=== PATIENT | male | born 1940 | race Caucasian/White ===

== ENCOUNTER 2017-05-13 13:01 | Outpatient (CLI) | payer MEDICARE, OTHER ==
[2017-05-13 13:37] LABS: HEMATOCRIT 24.1 % (37.9-51.0); HEMOGLOBIN 8.1 g/dL (13.5-17.0); HGB HCT DIFFERENCE 0.2; MEAN CORPUSCULAR HEMOGLOBIN 31.6 pg (27.0-33.4); MEAN CORPUSCULAR HGB CONC 33.7 g/dL (32.0-36.0); MEAN CORPUSCULAR VOLUME 94 fl (80-97); RED BLOOD COUNT 2.58 10^6/uL (4.35-5.55); RED CELL DISTRIBUTION WIDTH 14.7 % (11.5-14.0); WHITE BLOOD COUNT 8.7 10^3/uL (4.0-10.5)
[2017-05-13] MEDS ORDERED: NORMAL SALINE 250 ML IV PRN (13:54)
[2017-05-13] MEDS ORDERED: FUROSEMIDE INJ/PF 40 MG/4 ML SDV IV PRN (14:15)
[2017-05-13] MEDS ORDERED: ACETAMINOPHEN 325 MG TABLET PO PRN (14:15)
[2017-05-13] MEDS ORDERED: DIPHENHYDRAMINE HCL 25 MG CAPSULE PO PRN (14:15)
[2017-05-13 20:35] VITALS: BP 139/49
[2017-05-13 21:58] LABS: HEMATOCRIT 29.9 % (37.9-51.0); MEAN CORPUSCULAR HEMOGLOBIN 31.7 pg (27.0-33.4); MEAN CORPUSCULAR HGB CONC 34.2 g/dL (32.0-36.0); MEAN CORPUSCULAR VOLUME 93 fl (80-97); RED BLOOD COUNT 3.23 10^6/uL (4.35-5.55); RED CELL DISTRIBUTION WIDTH 14.9 % (11.5-14.0); WHITE BLOOD COUNT 7.9 10^3/uL (4.0-10.5)
[2017-05-13 22:11] LABS: HEMOGLOBIN 10.3 g/dL (13.5-17.0)
== END 2017-05-13 21:40 | disposition home or self-care (01) ==
LOC: II 13:01 → 4N 13:05 → II 21:40
PROVIDERS: ATTEND Internal Medicine Nephrology
PROC: 30233N1 Transfusion of Nonautologous Red Blood Cells into Peripheral Vein, Percutaneous Approach (ICD-10-PCS; principal; 2017-05-13)
DX: N18.5 Chronic kidney disease, stage 5 (principal); D63.1 Anemia in chronic kidney disease; I25.10 Atherosclerotic heart disease of native coronary artery without angina pectoris; R06.00 Dyspnea, unspecified
CPT/HCPCS: 96374; 86900; 86901; 36415; 36430; 86850; 85027; 86920; P9016; A9270 ×2; J1940

== ENCOUNTER → 2017-06-22 | Outpatient (CLI) | payer MEDICARE, OTHER ==
[2017-06-22 13:32] LABS: ABSOLUTE EOSINOPHILS # (AUTO) 0.5 10^3/uL (0.0-0.6); ABSOLUTE LYMPHOCYTES (AUTO) 0.6 10^3/uL (0.5-4.7); ABSOLUTE MONOCYTES (AUTO) 0.7 10^3/uL (0.1-1.4); ABSOLUTE NEUT (AUTO) 5.5 10^3/uL (1.7-8.2); BASOPHILS % (AUTO) 0.5 % (0-2); EOSINOPHILS % (AUTO) 6.6 % (0-6); HEMATOCRIT 28.2 % (37.9-51.0); HEMOGLOBIN 9.3 g/dL (13.5-17.0); HGB HCT DIFFERENCE -0.3; LYMPHOCYTES % (AUTO) 8.5 % (13-45); MEAN CORPUSCULAR HEMOGLOBIN 31.5 pg (27.0-33.4); MEAN CORPUSCULAR VOLUME 95 fl (80-97); MONOCYTES % (AUTO) 9.2 % (3-13); RED BLOOD COUNT 2.96 10^6/uL (4.35-5.55); RED CELL DISTRIBUTION WIDTH 15.4 % (11.5-14.0); SEGMENTED NEUTROPHILS % (AUTO) 75.2 % (42-78); WHITE BLOOD COUNT 7.3 10^3/uL (4.0-10.5)
[2017-06-22 13:34] LABS: APPEARANCE,URINE CLEAR; BILIRUBIN,URINE NEGATIVE (NEGATIVE); GLUCOSE, URINE NEGATIVE (NEGATIVE); KETONES,URINE NEGATIVE (NEGATIVE); LEUKOCYTE ESTERASE,URINE NEGATIVE (NEGATIVE); NITRITE,URINE NEGATIVE (NEGATIVE); PROTEIN,URINE >=500 mg/dL (NEGATIVE); URINE SPECIFIC GRAVITY 1.013; UROBILINOGEN,URINE NEGATIVE mg/dL (<2.0)
[2017-06-22 13:42] LABS: ALBUMIN 3.1 g/dL (3.5-5.0); ANION GAP 12 (5-19); BLOOD UREA NITROGEN 88 mg/dL (7-20); CALCIUM 8.2 mg/dL (8.4-10.2); CARBON DIOXIDE 22 mmol/L (22-30); CHLORIDE 107 mmol/L (98-107); CREATININE RESULT 3.97 mg/dL (0.52-1.25); GLUCOSE 80 mg/dL (75-110); PHOSPHORUS 5.9 mg/dL (2.5-4.5); POTASSIUM 4.9 mmol/L (3.6-5.0); SODIUM 140.5 mmol/L (137-145)
[2017-06-22 14:17] LABS: URINE CREATININE 81.8 mg/dL (22-328)
[2017-06-22 14:39] LABS: URINE PROTEIN 718.6 mg/dL (<12)
[2017-06-23 06:38] LABS: HEPATITIS C VIRUS AB <0.1 s/co ratio (0.0-0.9)
== END ==
LOC: OD 12:32
PROVIDERS: ATTEND Internal Medicine Nephrology
DX: N18.5 Chronic kidney disease, stage 5 (principal); E83.39 Other disorders of phosphorus metabolism; R80.9 Proteinuria, unspecified
CPT/HCPCS: 36415; 80048; 81001; 82040; 82570; 84100; 84156; 85025; 86317; 86704; 86803; 86804

== ENCOUNTER → 2017-07-13 | Outpatient (CLI) | payer MEDICARE, OTHER ==
[2017-07-13 15:14] LABS: ABSOLUTE EOSINOPHILS # (AUTO) 0.6 10^3/uL (0.0-0.6); ABSOLUTE MONOCYTES (AUTO) 0.7 10^3/uL (0.1-1.4); ABSOLUTE NEUT (AUTO) 6.6 10^3/uL (1.7-8.2); BASOPHILS % (AUTO) 0.5 % (0-2); EOSINOPHILS % (AUTO) 6.9 % (0-6); HEMATOCRIT 23.4 % (37.9-51.0); HEMOGLOBIN 8.1 g/dL (13.5-17.0); HGB HCT DIFFERENCE 0.9; LYMPHOCYTES % (AUTO) 11.3 % (13-45); MEAN CORPUSCULAR HGB CONC 34.4 g/dL (32.0-36.0); MEAN CORPUSCULAR VOLUME 93 fl (80-97); MONOCYTES % (AUTO) 8.3 % (3-13); RED BLOOD COUNT 2.52 10^6/uL (4.35-5.55); RED CELL DISTRIBUTION WIDTH 14.4 % (11.5-14.0)
[2017-07-13 15:16] LABS: APPEARANCE,URINE CLEAR; BILIRUBIN,URINE NEGATIVE (NEGATIVE); GLUCOSE, URINE NEGATIVE (NEGATIVE); KETONES,URINE NEGATIVE (NEGATIVE); LEUKOCYTE ESTERASE,URINE NEGATIVE (NEGATIVE); NITRITE,URINE NEGATIVE (NEGATIVE); PROTEIN,URINE >=500 mg/dL (NEGATIVE); URINE SPECIFIC GRAVITY 1.008; UROBILINOGEN,URINE NEGATIVE mg/dL (<2.0)
[2017-07-13 15:35] LABS: ALBUMIN 3.1 g/dL (3.5-5.0); ANION GAP 10 (5-19); BLOOD UREA NITROGEN 86 mg/dL (7-20); CALCIUM 8.7 mg/dL (8.4-10.2); CARBON DIOXIDE 22 mmol/L (22-30); CHLORIDE 107 mmol/L (98-107); CREATININE RESULT 4.81 mg/dL (0.52-1.25); GLUCOSE 75 mg/dL (75-110); PHOSPHORUS 6.2 mg/dL (2.5-4.5); POTASSIUM 5.6 mmol/L (3.6-5.0); SODIUM 139.4 mmol/L (137-145)
[2017-07-13 16:17] LABS: URINE CREATININE 41.4 mg/dL (22-328)
[2017-07-13 16:29] LABS: URINE PROTEIN 325.5 mg/dL (<12)
== END ==
LOC: OD 13:28
PROVIDERS: ATTEND Internal Medicine Nephrology
DX: N18.5 Chronic kidney disease, stage 5 (principal); D63.1 Anemia in chronic kidney disease; E83.39 Other disorders of phosphorus metabolism
CPT/HCPCS: 36415; 80048; 81001; 82040; 82570; 84100; 84156; 85025

== ENCOUNTER 2017-07-27 13:14 | Emergency (ER) | payer MEDICARE, OTHER ==
[2017-07-27] MEDS ORDERED: ALBUTEROL SULFATE 0.083% NEB 2.5 MG/3 ML AMPUL NEB ONE (13:40)
[2017-07-27] MEDS ORDERED: PREDNISONE 20 MG TABLET PO ONE (13:40)
[2017-07-27] MEDS ORDERED: IPRATROPIUM/ALBUTEROL 0.5-2.5 MG/3 ML AMPUL NEB ONE (13:40)
--- NOTE | 2017-07-27 14:13 | RADIOLOGY REPORT (SQ) ---
EXAM DESCRIPTION: CHEST PA/LAT COMPLETED DATE/TIME: 07/27/2017 1:59 pm REASON FOR STUDY: sob COMPARISON: Two-view chest 04/24/2011 EXAM PARAMETERS: NUMBER OF VIEWS: two views TECHNIQUE: Digital Frontal and Lateral radiographic views of the chest acquired. RADIATION DOSE: NA LIMITATIONS: none FINDINGS: LUNGS AND PLEURA: A 2 cm nodule is projected over the lower left major fissure, best shown on lateral view. Consider follow-up chest CT. Trace right lateral costophrenic sulcus and posterior costophrenic sulcus pleural fluid. No fluffy alveolar infiltrates worrisome for edema or pneumonia. No pneumothorax. MEDIASTINUM AND HILAR STRUCTURES: No masses or contour abnormalities. HEART AND VASCULAR STRUCTURES: Post sternotomy, aortic valve replacement, CABG. Faintly radiopaque c oronary stents are present. BONES: Osteopenic HARDWARE: Left-sided permanent central line tip superior vena cava OTHER: No other significant finding. IMPRESSION: 2 cm nodule projected over the major fissure region on lateral view, may be in the left lung base on frontal view. Trace right pleural effusion Left jugular central venous dialysis catheter tip in the superior vena cava TECHNICAL DOCUMENTATION: JOB ID: [id number] [employer]- All Rights Reserved
[2017-07-27] MEDS ORDERED: ALBUTEROL SULFATE HFA (90 MCG/PUFF) 8 GM MDI (1 MDI/ER DISP) IH ONE (16:07)
--- NOTE | 2017-07-27 16:08 | ER Document Report ---
ED General - General Chief Complaint: Shortness Of Breath Stated Complaint: SHORTNESS OF BREATH Time Seen by Provider: 07/27/17 13:38 TRAVEL OUTSIDE OF THE [place] IN LAST 30 DAYS: No - HPI Patient complains to provider of: Shortness of breath Notes: Patient coming in for evaluation shortness of breath. Patient states that he was at dialysis was recently started on dialysis when he became wheezy and therefore was transported to the ER for further evaluation. Patient only received 15 minutes of his dialysis session. Patient otherwise had no complaints no fevers chills nausea vomiting diarrhea no productive sputum. Patient otherwise is resting comfortably upon my evaluation. - Related Data Allergies/Adverse Reactions: niacin [Niacin] Allergy (Mild, Verified 06/16/16 16:24) [place] Past Medical History - Social History Smoking Status: Current Every Day Smoker Chew tobacco use (# tins/day): No Frequency of alcohol use: None Drug Abuse: None Family History: Reviewed & Not Pertinent - Past Medical History Cardiac Medical History: Reports: Hx Coronary Artery Disease - PVD, Hx Heart Attack - SC X3, Hx Hypertension Pulmonary Medical History: Reports: Hx Asthma, Hx COPD Denies: Hx Bronchitis, Hx Pneumonia Neurological Medical History: Reports: Hx Cerebrovascular Accident. Denies: Hx Seizures Renal/ Medical History: Reports: Hx End Stage Renal Disease - dialysis x 1 wk Musculoskeltal Medical History: Denies Hx Arthritis - Immunizations Hx Diphtheria, Pertussis, Tetanus Vaccination: No - THINKS HE HAD PNEU SHOT 2012 Hx Pneumococcal Vaccination: 10/18/12 Review of Systems - Review of Systems Constitutional: No symptoms reported EENT: No symptoms reported Cardiovascular: No symptoms reported Respiratory: Short of breath Gastrointestinal: No symptoms reported Genitourinary: No symptoms reported Male Genitourinary: No symptoms reported Musculoskeletal: No symptoms reported Skin: No symptoms reported Hematologic/Lymphatic: No symptoms reported Neurological/Psychological: No symptoms reported -: Yes All other systems reviewed and negative Physical Exam - Vital signs Vitals: Temp Pulse Resp BP Pulse Ox 97.8 F 88 16 143/50 H 94 07/27/17 16:18 07/27/17 16:18 07/27/17 16:18 07/27/17 16:18 07/27/17 16:18 Interpretation: Normal - General General appearance: Appears well, Alert - HEENT Head: Normocephalic, Atraumatic Eyes: Normal Pupils: PERRL - Respiratory Respiratory status: No respiratory distress Chest status: Nontender Breath sounds: Wheezing Chest palpation: Normal - Cardiovascular Rhythm: Regular Heart sounds: Normal auscultation Murmur: No - Abdominal Inspection: Normal Distension: No distension Bowel sounds: Normal Tenderness: Nontender Organomegaly: No organomegaly - Back Back: Normal, Nontender - Extremities General upper extremity: Normal inspection, Nontender, Normal color, Normal ROM , Normal temperature General lower extremity: Normal inspection, Nontender, Normal color, Normal ROM , Normal temperature, Normal weight bearing. No: Angelina's sign - Neurological Neuro grossly intact: Yes Cognition: Normal Orientation: AAOx4 Alberto Coma Scale Eye Opening: Spontaneous Alberto Coma Scale Verbal: Oriented [place] Coma Scale Motor: Obeys Commands Alberto Coma Scale Total: 15 Speech: Normal Motor strength normal: LUE, RUE, LLE, RLE Sensory: Normal - Psychological Associated symptoms: Normal affect, Normal mood - Skin Skin Temperature: Warm Skin Moisture: Dry Skin Color: Normal Course - Re-evaluation Re-evalutation: 07/27/17 18:20 Patient refusing any lab work states he would just like a chest x-ray breathing treatments. This was performed. Chest x-ray did not show any critical findings. 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 Otherwise patient feeling better agrees with discharge home with put the patient on prednisone - Vital Signs Vital signs: Temp Pulse Resp BP Pulse Ox 97.8 F 88 16 143/50 H 94 07/27/17 16:18 07/27/17 16:18 07/27/17 16:18 07/27/17 16:18 07/27/17 16:18 Discharge - Discharge Clinical Impression: Wheezing Dyspnea Qualifiers: Dyspnea type: unspecified Qualified Code(s): R06.00 - Dyspnea, unspecified Condition: Good Disposition: HOME, SELF-CARE Instructions: Bronchitis With Bronchospasm (Wheezing) (FORM[facility]LY [facility], 1928–1983) Additional Instructions: Please use your inhalers at home 2 puffs every 4 hours. Return to the ER if symptoms worsen. Take medications as prescribed. Prescriptions: Prednisone [Deltasone] 40 mg PO DAILY 5 Days tablet
[2017-07-27 16:25] VITALS: BP 143/50
== END 2017-07-27 16:25 | disposition home or self-care (01) ==
LOC: ER 13:14
DX: R06.00 Dyspnea, unspecified (principal); R06.2 Wheezing; R06.02 Shortness of breath; F17.200 Nicotine dependence, unspecified, uncomplicated; Z99.2 Dependence on renal dialysis
CPT/HCPCS: 94640; 99284; 71020; A9270 ×3; J3490; J7512; J7620

== ENCOUNTER → 2018-04-07 | Outpatient (CLI) | payer MEDICARE, OTHER ==
[2018-04-07 18:42] LABS: ALANINE AMINOTRANSFERASE 20 U/L (21-72); ALBUMIN 3.9 g/dL (3.5-5.0); ALKALINE PHOSPHATASE 97 U/L (38-126); ASPARTATE AMINO TRANSFERASE 20 U/L (17-59); BILIRUBIN,DIRECT 0.5 mg/dL (0.0-0.4); BILIRUBIN,TOTAL 0.8 mg/dL (0.2-1.3); CHOLESTEROL 119.44 mg/dL (0-200); TOTAL PROTEIN 6.5 g/dL (6.3-8.2); TRIGLYCERIDES 81 mg/dL (<150)
[2018-04-07 18:54] LABS: DIRECT LDL 47 mg/dL (<100)
== END ==
LOC: OD 17:45
PROVIDERS: ATTEND Internal Medicine Cardiovascular Disease
DX: E78.00 Pure hypercholesterolemia, unspecified (principal); Z79.899 Other long term (current) drug therapy
CPT/HCPCS: 80061; 80076

== ENCOUNTER → 2018-09-23 | Outpatient (CLI) | payer MEDICARE, OTHER ==
[~2018-09-23] MED LIST: ALBUTEROL SULFATE 0.083% NEB 2.5 MG/3 ML AMPUL NEB ONE
--- NOTE | 2018-09-23 09:53 | RADIOLOGY REPORT (SQ) ---
EXAM DESCRIPTION: CHEST 2 VIEWS COMPLETED DATE/TIME: 09/23/2018 9:44 am REASON FOR STUDY: PAROXSMAL ATRIAL FIBRILLATION COMPARISON: 07/27/2017 EXAM PARAMETERS: NUMBER OF VIEWS: two views TECHNIQUE: Digital Frontal and Lateral radiographic views of the chest acquired. RADIATION DOSE: NA LIMITATIONS: none FINDINGS: LUNGS AND PLEURA: There is a small left-sided pleural effusion there is underlying atelect asis. Pulmonary nodule previously described is less apparent on the lateral projection but is appare nt on the PA film measured at 1.9 cm adjacent to the mediastinum. MEDIASTINUM AND HILAR STRUCTURES: No masses or contour abnormalities. HEART AND VASCULAR STRUCTURES: Heart normal size. No evidence for failure. BONES: No acute findings. HARDWARE: Unchanged. OTHER: No other significant finding. IMPRESSION: 1. Small left pleural effusion with left basilar atelectasis or pneumonia new from prior study. Again left lower lobe pulmonary nodule is suspected best demonstrated on the PA projection o n today's study. This is measured at 1.9 cm. TECHNICAL DOCUMENTATION: JOB ID: [id number] [employer]- All Rights Reserved Reading location - IP/workstation name: [email or web address]
--- NOTE | 2018-09-26 11:12 | Pulmonary Function Test ---
Pulmonary Function Test Date of Procedure:: 09/26/18 INDICATION:: Dyspnea Referring Provider: Wood Cabinetmaker: Sandra Hernandez GROUP DYNAMICS INSTRUCTOR - Report Spirometry: FVC 3.29 L 94% postbronchodilator 3.36 L 96% FEV1 1.66 L 61% postbronchodilator 1.67 L 62% FEV1/FVC % 50 postbronchodilator 50 predicted 78 FEF 25-75% 0.41 L 50% postbronchodilator 0.39 L 50% Diffusion capacity 10.2 64% DLCO/VA 2.90 83% Diffusion Capactity: Diffusion capacity 10.2 64% DLCO/VA 2.90 83% Impression: Severe obstructive ventilatory defect with insignificant response to bronchodilator therapy. This in and of itself does not preclude a clinical trial of bronchodilator therapy. Mild decrease in diffusion capacity.
== END ==
LOC: RT 08:24
PROVIDERS: ATTEND Internal Medicine Cardiovascular Disease
DX: I48.0 Paroxysmal atrial fibrillation (principal); Z79.899 Other long term (current) drug therapy
CPT/HCPCS: 71046; 94729; 94060; A9270

== ENCOUNTER → 2018-10-20 | Outpatient (CLI) | payer MEDICARE, OTHER | LOC: OD 11:17 | PROVIDERS: ATTEND Internal Medicine Critical Care Medicine | DX: J44.9 Chronic obstructive pulmonary disease, unspecified (principal); R91.8 Other nonspecific abnormal finding of lung field; R91.1 Solitary pulmonary nodule; J90 Pleural effusion, not elsewhere classified; J43.9 Emphysema, unspecified; Z87.448 Personal history of other diseases of urinary system; Z99.2 Dependence on renal dialysis; J44.1 Chronic obstructive pulmonary disease with (acute) exacerbation; F17.200 Nicotine dependence, unspecified, uncomplicated ==

== ENCOUNTER 2018-10-21 07:21 | Day surgery (SDC) | payer MEDICARE, OTHER ==
[2018-10-21 07:51] LABS: INTERNATIONAL RATION (INR) 1.05; PARTIAL THROMBOPLASTIN TIME 33.1 SEC (23.5-35.8); PROTHROMBIN TIME 14.2 SEC (11.4-15.4)
[2018-10-21 08:06] LABS: ANION GAP 13 (5-19); BLOOD UREA NITROGEN 57 mg/dL (7-20); CALCIUM 8.6 mg/dL (8.4-10.2); CARBON DIOXIDE 28 mmol/L (22-30); CHLORIDE 96 mmol/L (98-107); GLUCOSE 77 mg/dL (75-110); POTASSIUM 5.6 mmol/L (3.6-5.0); SODIUM 136.6 mmol/L (137-145)
[2018-10-21 08:11] LABS: HEMATOCRIT 26.7 % (37.9-51.0); HEMOGLOBIN 8.8 g/dL (13.5-17.0); MEAN CORPUSCULAR HEMOGLOBIN 30.6 pg (27.0-33.4); MEAN CORPUSCULAR HGB CONC 32.8 g/dL (32.0-36.0); MEAN CORPUSCULAR VOLUME 93 fl (80-97); RED BLOOD COUNT 2.86 10^6/uL (4.35-5.55); RED CELL DISTRIBUTION WIDTH 18.8 % (11.5-14.0); WHITE BLOOD COUNT 8.9 10^3/uL (4.0-10.5)
[2018-10-21 08:45] LABS: PLATELET COUNT 92 10^3/uL (150-450)
[2018-10-21] MEDS ORDERED: LEVALBUTEROL HCL NEB 1.25 MG/3 ML AMPUL NEB ONE (09:38)
[2018-10-21] MEDS ORDERED: LIDOCAINE 1% INJ-PF (10 MG/ML) 30 ML SDV ONE (10:39)
--- NOTE | 2018-10-21 11:09 | RADIOLOGY REPORT (SQ) ---
EXAM DESCRIPTION: CHEST SINGLE VIEW COMPLETED DATE/TIME: 10/21/2018 10:48 am REASON FOR STUDY: PREOP COMPARISON: None. EXAM PARAMETERS: NUMBER OF VIEWS: One view. TECHNIQUE: Single frontal radiographic view of the chest acquired. RADIATION DOSE: NA LIMITATIONS: None. FINDINGS: LUNGS AND PLEURA: Moderate left-sided pleural effusion, mildly increased from prior. Dens e basilar consolidation, likely combination of atelectasis and effusion. No pneumothorax. MEDIASTINUM AND HILAR STRUCTURES: No discrete masses. HEART AND VASCULAR STRUCTURES: Heart normal in size. Normal vasculature. BONES: No acute findings. HARDWARE: None in the chest. OTHER: No other significant finding. IMPRESSION: Mildly increased size of the moderate left pleural and associated basilar atelectasis. TECHNICAL DOCUMENTATION: JOB ID: [id number] [employer]- All Rights Reserved Reading location - IP/workstation name: [email or web address]
--- NOTE | 2018-10-21 11:58 | RADIOLOGY REPORT (SQ) ---
EXAM DESCRIPTION: CHEST SINGLE VIEW COMPLETED DATE/TIME: 10/21/2018 11:42 am REASON FOR STUDY: P/S THOROCENTESIS COMPARISON: None. EXAM PARAMETERS: NUMBER OF VIEWS: One view. TECHNIQUE: Single frontal radiographic view of the chest acquired. RADIATION DOSE: NA LIMITATIONS: None. FINDINGS: LUNGS AND PLEURA: Mildly decreased size of the left-sided pleural effusion post thoracente sis. No pneumothorax. Residual mild effusion and basilar atelectasis. Unremarkable right hemithora x. MEDIASTINUM AND HILAR STRUCTURES: Stable. HEART AND VASCULAR STRUCTURES: Stable. Atherosclerotic aorta. BONES: No acute abnormality. Median sternotomy changes. HARDWARE: None in the chest. OTHER: No other significant finding. IMPRESSION: Mildly decreased size of the left-sided pleural effusion status post thoracentesis. No pneumothorax. TECHNICAL DOCUMENTATION: JOB ID: [id number] [employer]- All Rights Reserved Reading location - IP/workstation name: [email or web address]
--- NOTE | 2018-10-21 12:04 | RADIOLOGY REPORT (SQ) ---
EXAM DESCRIPTION: U/S CHEST COMPLETED DATE/TIME: 10/21/2018 10:44 am REASON FOR STUDY: QUANTITATIVE FOR PLEURAL EFF @0900 J90 PLEURAL EFFUSION, NOT ELSEWHERE CLASSIFIED Z79.01 ALF (CURRENT) USE OF ANTICOAGULANTS COMPARISON: None. RADIATION DOSE: None LIMITATIONS: Limited ultrasound evaluation of the left chest performed to quantify pleural fluid. . PROCEDURE: Limited sonographic images of the left chest were obtained to quantify pleural fluid. Pl ease see the procedure report for detailed description of the procedure. FINDINGS: Limited left chest ultrasound demonstrates moderate volume simple appearing pleural effusi on. IMPRESSION: Limited left chest ultrasound demonstrates moderate volume simple pleural effusion. Ple ase see procedure report for detailed description of the procedure. TECHNICAL DOCUMENTATION: JOB ID: [id number] [employer]- All Rights Reserved Reading location - IP/workstation name: [email or web address]
[2018-10-21 12:34] LABS: FLUID TYPE PLEURAL
[2018-10-21 12:36] LABS: FLUID APPEARANCE HAZY; FLUID COLOR YELLOW; FLUID VISCOSITY LIQUID
[2018-10-21 12:56] VITALS: BP 153/58
[2018-10-21 15:02] LABS: TOTAL PROTEIN 5.8 g/dL (6.3-8.2)
--- NOTE | 2018-10-22 15:22 | OPERATIVE REPORT E ---
Operative Report NAME: DANE CASTLE : 1940 AGE: 78Y DATE OF SURGERY: 10/21/2018 ROOM: PROCEDURE: Ultrasound guided thoracentesis. SURGEON: RAQUEL CROSS M.D. INDICATION: Moderate pleural effusion, left side worsening. OTHER DIAGNOSES: 1. History of chronic kidney disease on hemodialysis. 2. Congestive heart failure. 3. Severe coronary artery disease. FINDINGS: Exudative serosanguineous pleural fluid drained from the left side to a total of 1100 mL. COMPLICATIONS: None. ESTIMATED BLOOD LOSS: Less than 1 mL. SPECIMEN REMOVED: Pleural fluid from the left chest. OPERATIVE NOTE: Consent was obtained from the patient. The patient verbalized understanding of the indication, risks and potential complications of the procedure such as pneumothorax, infection, and bleeding. Chest x-ray was performed today showing moderate pleural effusion left side. PT and PTT was normal. CBC showed some anemia of chronic disease and thrombocytopenia to 90,000 platelet count. Discussed with the patient the risk for bleeding at this platelet count level. The patient does not need a platelet transfusion at this time, platelet count is more than 50,000. Ultrasound was performed on the left chest showing atelectatic lung and moderate amount of pleural effusion, and there are no loculations or floating debris inside the pleural space. The thoracentesis needle entry site was marked and the operative site was sterilized with chlorhexidine solution. The area was covered with sterile drapes. Sterile gloves, mask, head gear, and sterile gowns were used during the procedure. Using aseptic technique lidocaine 1% was injected into the needle entry site to 10 mL. A small skin incision was performed and the thoracentesis needle was inserted in the left pleural space using the jose alejandro area. The syringe was aspirated as the thoracentesis needle is inserted, and as the pleural fluid was aspirated, the plastic catheter was pushed into the pleural space and the metal needle was withdrawn or removed. Then pleural fluid was then aspirated from the plastic catheter. Collected about 1100 mL of serosanguinous pleural fluid from the left lung. The patient tolerated the procedure very well. There was no apparent bleeding noted. Chest x-ray will be done to rule out pneumothorax and if there is no pneumothorax the patient will be discharged home. The pleural fluid was sent for cytology, AFB, bacteria, fungi cultures. DICTATING PHYSICIAN: RAQUEL CROSS MD,MELA,MPH [id number] PHY#: [id number] ID: [id number] JOB#: [id number] ACCT: [id number] cc:RAQUEL CROSS M.D. > [facility]
[2018-10-22 17:47] LABS: TOTAL PROTEIN BODY FLUID 3.6 g/dL (.)
== END 2018-10-21 12:10 | disposition home or self-care (01) ==
LOC: END 07:21
PROVIDERS: ATTEND Internal Medicine Critical Care Medicine
DX: J90 Pleural effusion, not elsewhere classified (principal); J91.8 Pleural effusion in other conditions classified elsewhere; J43.9 Emphysema, unspecified; Z79.01 Long term (current) use of anticoagulants; I25.10 Atherosclerotic heart disease of native coronary artery without angina pectoris; I50.9 Heart failure, unspecified; M10.9 Gout, unspecified; Z79.51 Long term (current) use of inhaled steroids; Z79.899 Other long term (current) drug therapy; Z79.02 Long term (current) use of antithrombotics/antiplatelets; Z79.82 Long term (current) use of aspirin; Z87.891 Personal history of nicotine dependence; Z99.2 Dependence on renal dialysis; Z87.448 Personal history of other diseases of urinary system
CPT/HCPCS: 32554; 88112; 36415; 87205; 87206; 87116; 87070; 87101; 83615 ×2; 84155; 85027; 85610; 85730; 89050; 87075; 80048; 82945; 84157; 87015; 71045; 76604; 94640; J3490 ×2

== ENCOUNTER 2018-11-29 07:15 | Day surgery (SDC) | payer MEDICARE, OTHER ==
[2018-11-29 08:05] LABS: HEMATOCRIT 26.6 % (37.9-51.0); HEMOGLOBIN 8.5 g/dL (13.5-17.0); MEAN CORPUSCULAR HEMOGLOBIN 29.4 pg (27.0-33.4); MEAN CORPUSCULAR HGB CONC 31.8 g/dL (32.0-36.0); MEAN CORPUSCULAR VOLUME 92 fl (80-97); PLATELET COUNT 118 10^3/uL (150-450); RED BLOOD COUNT 2.88 10^6/uL (4.35-5.55); RED CELL DISTRIBUTION WIDTH 19.6 % (11.5-14.0); WHITE BLOOD COUNT 8.7 10^3/uL (4.0-10.5)
[2018-11-29 08:12] LABS: INTERNATIONAL RATION (INR) 1.15; PROTHROMBIN TIME 15.3 SEC (11.4-15.4)
[2018-11-29 08:13] LABS: ANION GAP 8 (5-19); BLOOD UREA NITROGEN 24 mg/dL (7-20); CALCIUM 8.5 mg/dL (8.4-10.2); CARBON DIOXIDE 33 mmol/L (22-30); CHLORIDE 99 mmol/L (98-107); GLUCOSE 85 mg/dL (75-110); POTASSIUM 3.6 mmol/L (3.6-5.0); SODIUM 139.8 mmol/L (137-145)
[2018-11-29] MEDS ORDERED: DIPHENHYDRAMINE HCL 50 MG/ML VIAL ONE (10:50)
[2018-11-29] MEDS ORDERED: NALOXONE HCL INJ/PF 0.4 MG/1 ML SDV ONE (10:50)
[2018-11-29] MEDS ORDERED: ONDANSETRON HCL INJ/PF 4 MG/2 ML SDV ONE (10:50)
[2018-11-29] MEDS ORDERED: MIDAZOLAM 2 MG/2 ML INJ ONE (10:50)
[2018-11-29] MEDS ORDERED: FENTANYL CITRATE INJ/PF 100 MCG/2 ML AMPUL ONE (10:50)
[2018-11-29] MEDS ORDERED: GLUCAGON,HUMAN RECOMB 1 MG INJ ONE (10:51)
[2018-11-29] MEDS ORDERED: FLUMAZENIL INJ 0.5 MG/5 ML VIAL ONE (10:51)
[2018-11-29] MEDS ORDERED: EPINEPHRINE INJ 1 MG/10 ML DISP.SYRIN ONE (10:51)
[2018-11-29] MEDS ORDERED: LIDOCAINE 1% INJ-PF (10 MG/ML) 30 ML SDV ONE (11:20)
--- NOTE | 2018-11-29 12:49 | RADIOLOGY REPORT (SQ) ---
EXAM DESCRIPTION: CHEST SINGLE VIEW COMPLETED DATE/TIME: 11/29/2018 12:36 pm REASON FOR STUDY: POST THORO COMPARISON: Chest films 10/21/2018, 09/23/2018, 07/27/2017 Ultrasound left chest same date EXAM PARAMETERS: NUMBER OF VIEWS: One view. TECHNIQUE: Single frontal radiographic view of the chest acquired. RADIATION DOSE: NA LIMITATIONS: None. FINDINGS: LUNGS AND PLEURA: There is increase in left pleural effusion compared to previous studies. Persistent left lower lobe consolidation atelectasis versus pneumonia. Right lung well inflated and clear. No right pleural effusion or pneumothorax. MEDIASTINUM AND HILAR STRUCTURES: No masses. Contour normal. HEART AND VASCULAR STRUCTURES: Old sternotomy with aortic valve. No cardiomegaly. BONES: No acute findings. HARDWARE: None in the chest. OTHER: No other significant finding. IMPRESSION: Moderate left pleural effusion, increased compared to previous exams. TECHNICAL DOCUMENTATION: JOB ID: [id number] [employer]- All Rights Reserved Reading location - IP/workstation name: [email or web address]
--- NOTE | 2018-11-29 13:05 | RADIOLOGY REPORT (SQ) ---
EXAM DESCRIPTION: U/S CHEST COMPLETED DATE/TIME: 11/29/2018 11:48 am REASON FOR STUDY: 5TH FLOOR- TO RAHUL FOR THORACENTESIS COMPARISON: 10/21/2018 ultrasound chest Chest films 11/29/2018, 10/21/2018, 09/23/2018 TECHNIQUE: Ultrasound of the left chest was performed to rahul access for thoracentesis LIMITATIONS: None. FINDINGS: Ultrasound of the left chest demonstrates a moderate left subpulmonic pleural effusion. IMPRESSION: Ultrasound of the left chest demonstrates a moderate left subpulmonic pleural effusion TECHNICAL DOCUMENTATION: JOB ID: [id number] [employer]- All Rights Reserved Reading location - IP/workstation name: [email or web address]
--- NOTE | 2018-11-29 13:12 | OPERATIVE REPORT E ---
Operative Report NAME: DANE CASTLE : 1940 AGE: 78Y DATE OF SURGERY: ROOM: HISTORY: The patient is a 78-year-old male who came in with pleural effusion, recurrent, left side. The patient had thoracentesis on 10/21/2018, removing serous pleural effusion. The pleural effusion was unremarkable. He has been scheduled for ultrasound-guided thoracentesis as an outpatient. PROCEDURE: Ultrasound-guided thoracentesis, left side. INDICATION: Recurrent or worsening pleural effusion, left side. SURGEON: RAQUEL CROSS M.D. ESTIMATED BLOOD LOSS: Less than 1 mL. SPECIMEN COLLECTED: Pleural effusion, left side, serosanguineous fluid, about 1100 mL. PROCEDURE NOTE: Consent was obtained from the patient. The patient verbalized understanding of the indications, risks, and complications of the procedure. Ultrasound was performed on the left posterior chest quantifying the pleural effusion and localizing the needle entry site. Chlorhexidine swab was applied to the marked entry site to sterilize the operative site. Sterile drapes were used to cover the operative site. Using sterile gowns, sterile gloves, mask, and aseptic technique, 1% lidocaine solution was injected into the marked needle entry site to the total dose of about 15 mL lidocaine. A small skin incision was applied on the operative site. The thoracentesis needle from the Ibwq-F-Sdkvueoh kit was then inserted into the small skin incision and the needle was inserted into the pleural space just above the rib. Once the pleural fluid was withdrawn, the pleural catheter was then pushed into the pleural space, and then the metal needle was withdrawn. The pleural fluid was then subsequently drained into the container bag to a total amount of 1100 mL serosanguineous fluid. The patient tolerated the procedure well. Blood loss was negligible. Complained about upper chest pain on deep inspiration. Stat chest x-ray showed no pneumothorax. Pleural fluid will be sent for pleural fluid analysis. We will check the hemoglobin level. If the hemoglobin is normal, we will send the patient home and follow up as an outpatient. DICTATING PHYSICIAN: RAQUEL CROSS MD,MELA,MPH [id number] PHY#: [id number] ID: [id number] JOB#: [id number] ACCT: [id number] cc:RAQUEL CROSS M.D. > [facility]
[2018-11-29 13:13] LABS: ABSOLUTE EOSINOPHILS # (AUTO) 0.3 10^3/uL (0.0-0.6); ABSOLUTE MONOCYTES (AUTO) 0.7 10^3/uL (0.1-1.4); ABSOLUTE NEUT (AUTO) 6.2 10^3/uL (1.7-8.2); BASOPHILS % (AUTO) 0.4 % (0-2); EOSINOPHILS % (AUTO) 3.1 % (0-6); HEMATOCRIT 27.8 % (37.9-51.0); HEMOGLOBIN 8.9 g/dL (13.5-17.0); LYMPHOCYTES % (AUTO) 12.6 % (13-45); MEAN CORPUSCULAR HEMOGLOBIN 29.1 pg (27.0-33.4); MEAN CORPUSCULAR HGB CONC 31.9 g/dL (32.0-36.0); MEAN CORPUSCULAR VOLUME 91 fl (80-97); MONOCYTES % (AUTO) 8.1 % (3-13); PLATELET COUNT 103 10^3/uL (150-450); RED BLOOD COUNT 3.05 10^6/uL (4.35-5.55); RED CELL DISTRIBUTION WIDTH 19.7 % (11.5-14.0); SEGMENTED NEUTROPHILS % (AUTO) 75.8 % (42-78); TOTAL CELLS COUNTED % (AUTO) 100 %; WHITE BLOOD COUNT 8.2 10^3/uL (4.0-10.5)
[2018-11-29 13:55] VITALS: BP 152/45
[2018-11-29 14:05] LABS: FLUID APPEARANCE TURBID; FLUID COLOR RED; FLUID TYPE PLEURAL; FLUID VISCOSITY LIQUID
[2018-11-30 13:34] LABS: TOTAL PROTEIN BODY FLUID 3.5 g/dL (.)
== END 2018-11-29 13:30 | disposition home or self-care (01) ==
LOC: END 07:15
PROVIDERS: ATTEND Internal Medicine Critical Care Medicine
DX: J90 Pleural effusion, not elsewhere classified (principal); J43.9 Emphysema, unspecified; M10.9 Gout, unspecified; K74.60 Unspecified cirrhosis of liver; F17.210 Nicotine dependence, cigarettes, uncomplicated; Z79.51 Long term (current) use of inhaled steroids; Z79.82 Long term (current) use of aspirin; Z79.899 Other long term (current) drug therapy; Z79.02 Long term (current) use of antithrombotics/antiplatelets; Z86.73 Personal history of transient ischemic attack (TIA), and cerebral infarction without residual deficits
CPT/HCPCS: 32554; 36415; 87205; 87206; 87116; 87070; 87101; 83615 ×2; 85025; 85027; 85610; 85730; 89050; 87075; 80048; 82945; 84157; 87015; 88162; 88305 ×2; 71045; 76604; J3490; J0171; J1200; J1610; J2250; J2310; J2405; J3010

== ENCOUNTER → 2018-11-30 | Outpatient (CLI) | payer MEDICARE, OTHER ==
--- NOTE | 2018-11-30 15:53 | RADIOLOGY REPORT (SQ) ---
EXAM DESCRIPTION: CT CHEST WITHOUT COMPLETED DATE/TIME: 11/30/2018 3:29 pm REASON FOR STUDY: R91.1 SOLITARY PULMONARY NODULE R91.1 SOLITARY PULMONARY NODULE Z87.448 PERSONAL HISTORY OF OTHER DISEASES OF URINARY SYSTEM J90 PLEURAL EFFUSION, NOT ELSEWHERE CLASSIFIED COMPARISON: None. TECHNIQUE: CT scan performed of the chest without intravenous contrast. Images reviewed with lung, soft tissue and bone windows. Reconstructed coronal and sagittal MPR images reviewed. All images st ored on PACS. All CT scanners at this facility use dose modulation, iterative reconstruction, and/or weight based d osing when appropriate to reduce radiation dose to as low as reasonably achievable (ALARA). [facility]: Dose Right [facility]: CareDose [facility]: Dose Right [facility]: Teradose 4D [facility]: [employer] RADIATION DOSE: CT Rad equipment meets quality standard of care and radiation dose reduction techniq ues were employed. CTDIvol: 5.6 mGy. DLP: 233 mGy-cm. mGy. LIMITATIONS: No technical limitations. FINDINGS: LUNGS AND PLEURA: Pleural/parenchymal scarring in the apices. Prominent left pleural effu abdullahi that appears somewhat loculated in the left base. There are compressive atelectatic changes in the lingula and in the left lower lobe. HILAR AND MEDIASTINAL STRUCTURES: No identified masses or abnormal nodes. No obvious aneurysm. HEART AND VASCULAR STRUCTURES: No aneurysm. No pericardial effusion. UPPER ABDOMEN: Extensive atherosclerosis. THYROID AND OTHER SOFT TISSUES: No masses. No adenopathy. BONES: No significant finding. HARDWARE: Aortic valve. Sternotomy wires. OTHER: No other significant findings. IMPRESSION: There is a significant left pleural effusion as described. TECHNICAL DOCUMENTATION: JOB ID: [id number] Quality ID # [id number]: Final reports with documentation of one or more dose reduction techniques (e.g., Au tomated exposure control, adjustment of the mA and/or kV according to patient size, use of iterative reconstruction technique) 2010 [employer]- All Rights Reserved Reading location - IP/workstation name: [email or web address]
== END ==
LOC: RAD 15:10
PROVIDERS: ATTEND Internal Medicine Critical Care Medicine
DX: R91.1 Solitary pulmonary nodule (principal); Z87.448 Personal history of other diseases of urinary system; J90 Pleural effusion, not elsewhere classified; K74.60 Unspecified cirrhosis of liver; J44.9 Chronic obstructive pulmonary disease, unspecified; J43.9 Emphysema, unspecified; R91.8 Other nonspecific abnormal finding of lung field; G47.34 Idiopathic sleep related nonobstructive alveolar hypoventilation; F51.04 Psychophysiologic insomnia; Z99.2 Dependence on renal dialysis; F17.200 Nicotine dependence, unspecified, uncomplicated
CPT/HCPCS: 71250

== ENCOUNTER 2019-02-06 13:20 | Inpatient (IN) | payer MEDICARE, OTHER ==
--- NOTE | 2019-02-06 13:46 | ER Document Report ---
ED General - General Stated Complaint: BREATHING PROBLEMS Time Seen by Provider: 02/06/19 13:40 Primary Care Provider: RAQUEL CROSS MD [ACTIVE STAFF] - Follow up as needed TRAVEL OUTSIDE OF THE [place] IN LAST 30 DAYS: No - HPI Notes: Patient is a 78-year-old male that presents to the emergency department for chief complaint of shortness of breath. Patient presented by EMS from [facility] for shortness of breath. He was reportedly on dialysis for about 15 minutes when he became increasingly tachypneic. Patient reports feeling increased shortness of breath over the last 5 days. He gets dialysis Wednesday and has not missed a treatment other than only getting 15 minutes today. Patient reports history of COPD and has been using his home albuterol nebulizer 3 times daily. He denies being on any steroids currently. He denies any associated fevers or chills. He does wear 2 L nasal cannula oxygen at night which he has been doing it. Patient received 125 mg of Solu-Medrol, 1 albuterol, 1 DuoNeb, 1 sublingual nitroglycerin, 1.25 mg of Vasotec and 1-1/2 inches of Nitropaste to his chest by EMS prior to arrival and reports feeling much better. EMS stated he was dusky in color and tripoding with an oxygen of 86% on 4 L nasal cannula when they arrived at [facility]. Patient denied any associated chest pain. Past Medical History: CAD, hypertension, CKD, COPD Past Surgical History: Right upper extremity AV fistula Social History: Quit smoking cigarettes 47 days ago. Denies alcohol or drug use Family History: Reviewed and noncontributory for presenting illness Allergies: Reviewed, see documented allergy list. REVIEW OF SYSTEMS: CONSTITUTIONAL : No fever No chills No diaphoresis No recent illness EENT: No vision changes No congestion No sore throat CARDIOVASCULAR: No chest pain No palpitations RESPIRATORY: shortness of breath cough difficulty breathing GASTROINTESTINAL: No abdominal pain No nausea No vomiting No diarrhea GENITOURINARY: No dysuria No hematuria No difficulty urinating MUSCULOSKELETAL: No back pain No leg pain No arm pain SKIN: No rashes No lesions LYMPHATIC: No swollen, enlarged glands. NEUROLOGICAL: No lightheadedness No headache No weakness No paresthesias PSYCHIATRIC: No anxiety No depression PHYSICAL EXAMINATION: Vital signs reviewed, nursing noted reviewed. GENERAL: Well-appearing, well-nourished and in no acute distress. HEAD: Atraumatic, normocephalic. EYES: Eyes appear normal, extraocular movements intact, sclera anicteric, conjunctiva are normal. ENT: nares patent, oropharynx clear without exudates. Moist mucous membranes. NECK: Normal range of motion, supple without lymphadenopathy LUNGS: Breath sounds diminished bilaterally with expiratory wheezing and mild a ccessory muscle use. Tachypneic. No retractions. HEART: Regular rate and rhythm without murmurs ABDOMEN: Protuberant, soft, nontender, normoactive bowel sounds. No rebound, guarding, or rigidity. No masses appreciated. EXTREMITIES: Right proximal extremity AV fistula with good bruit and thrill, no bleeding. Nontender, good range of motion, +2 bilateral pitting edema NEUROLOGICAL: No focal neurological deficits. Moves all extremities spontaneously Motor and sensory grossly intact on exam. PSYCH: Normal mood, normal affect. SKIN: Warm, Dry, normal turgor, no rashes or lesions noted on exposed skin - Related Data Allergies/Adverse Reactions: niacin [Niacin] Allergy (Mild, Verified 02/06/19 14:40) Flushing Past Medical History - Social History Smoking Status: Unknown if Ever Smoked Family History: Reviewed & Not Pertinent - Past Medical History Cardiac Medical History: Reports: Hx Coronary Artery Disease - PVD, Hx Heart Attack - [place] X3, Hx Hypertension Pulmonary Medical History: Reports: Hx Asthma, Hx COPD Denies: Hx Bronchitis, Hx Pneumonia Neurological Medical History: Reports: Hx Cerebrovascular Accident. Denies: Hx Seizures Renal/ Medical History: Reports: Hx End Stage Renal Disease - dialysis x 1 wk Musculoskeletal Medical History: Denies Hx Arthritis - Immunizations Hx Diphtheria, Pertussis, Tetanus Vaccination: No - THINKS HE HAD PNEU SHOT 2012 Hx Pneumococcal Vaccination: 10/18/12 Physical Exam - Vital signs Vitals: Resp Pulse Ox 19 100 02/06/19 13:30 02/06/19 13:30 Course - Re-evaluation Re-evalutation: 02/06/19 13:45 Vitals reviewed. Nursing notes reviewed. Patient is on BiPAP when he presents to the ER. He received Solu-Medrol, aerosols, nitro, Vasotec and was placed on CPAP by EMS prior to arrival and is reportedly looking significantly better. He reports significant symptomatic improvement. Patient's EKG shows a sinus rhythm with no STEMI. He was placed on laboratory monitor. 02/06/19 15:58 I discussed patient care with Dr. Rea who has arranged for him to receive dialysis, this was started in the emergency room. Patient's lab work shows bas mari renal insufficiency with a slight elevation in his potassium. He also has a high elevation in his BNP. Chest x-ray shows reaccumulation of his left pleural effusion which he has had drained 3 times in the past, he also has a small right pleural effusion. This is likely the cause of his respiratory difficulties. Patient will be admitted to the hospital for further respiratory management. He is in agreement with this plan of care. Case discussed with admitting physician. Laboratory 02/06/19 02/06/19 02/06/19 13:49 13:49 13:49 WBC 11.1 H RBC 2.61 L Hgb 7.4 L Hct 23.3 L MCV 89 MCH 28.3 MCHC 31.7 L RDW 19.2 H Plt Count 242 Seg Neutrophils % 86.2 H Lymphocytes % 5.2 L Monocytes % 5.6 Eosinophils % 2.4 Basophils % 0.6 Absolute Neutrophils 9.6 H Absolute Lymphocytes 0.6 Absolute Monocytes 0.6 Absolute Eosinophils 0.3 Absolute Basophils 0.1 Carbonic Acid HCO3/H2CO3 Ratio ABG pH ABG pCO2 ABG pO2 ABG HCO3 ABG Total CO2 ABG O2 Saturation ABG Base Excess FiO2 Sodium 134.1 L Potassium 5.3 H Chloride 98 Carbon Dioxide 29 Anion Gap 7 BUN 42 H Creatinine 5.39 H Est GFR ( Amer) 13 L Est GFR (Non-Af Amer) 10 L Glucose 118 H Calcium 9.4 Troponin I 0.021 NT-Pro-B Natriuret Pep 50695 H Blood Type Antibody Screen 02/06/19 02/06/19 14:50 15:00 WBC RBC Hgb Hct MCV MCH MCHC RDW Plt Count Seg Neutrophils % Lymphocytes % Monocytes % Eosinophils % Basophils % Absolute Neutrophils Absolute Lymphocytes Absolute Monocytes Absolute Eosinophils Absolute Basophils Carbonic Acid 1.30 HCO3/H2CO3 Ratio 22:1 ABG pH 7.45 ABG pCO2 43.2 ABG pO2 84.9 ABG HCO3 29.3 H ABG Total CO2 30.6 H ABG O2 Saturation 96.7 ABG Base Excess 4.8 FiO2 30% Sodium Potassium Chloride Carbon Dioxide Anion Gap BUN Creatinine Est GFR ( Amer) Est GFR (Non-Af Amer) Glucose Calcium Troponin I NT-Pro-B Natriuret Pep Blood Type A POSITIVE Antibody Screen NEGATIVE Chest X-Ray 02/06/19 13:41 IMPRESSION: Redemonstrated left-sided pleural effusion with associated atelectasis or consolidation. There is a new small right-sided pleural effusion . Unchanged cardiomegaly. - Vital Signs Vital signs: Temp Pulse Resp BP Pulse Ox 12 135/55 H 99 02/06/19 15:50 02/06/19 15:50 02/06/19 15:50 - Laboratory Result Diagrams: 02/06/19 13:49 02/06/19 13:49 Laboratory results interpreted by me: 02/06/19 02/06/19 02/06/19 13:49 13:49 13:49 WBC 11.1 H RBC 2.61 L Hgb 7.4 L Hct 23.3 L MCHC 31.7 L RDW 19.2 H Seg Neutrophils % 86.2 H Lymphocytes % 5.2 L Absolute Neutrophils 9.6 H ABG HCO3 ABG Total CO2 Sodium 134.1 L Potassium 5.3 H BUN 42 H Creatinine 5.39 H Est GFR ( Amer) 13 L Est GFR (Non-Af Amer) 10 L Glucose 118 H NT-Pro-B Natriuret Pep 05349 H 02/06/19 15:00 WBC RBC Hgb Hct MCHC RDW Seg Neutrophils % Lymphocytes % Absolute Neutrophils ABG HCO3 29.3 H ABG Total CO2 30.6 H Sodium Potassium BUN Creatinine Est GFR ( Amer) Est GFR (Non-Af Amer) Glucose NT-Pro-B Natriuret Pep - EKG Interpretation by Me Additional EKG results interpreted by me: 02/06/19 13:45 Interpreted by myself 1337: Normal sinus rhythm, rate 70, normal axis, no ectopy, no STEMI, borderline prolonged QT Critical Care Note - Critical Care Note Total time excluding time spent on procedures (mins): 35 Comments: Critical care time 35 exclusive from separate billable procedures for a patient requiring complex medical decision making, and high potential for clinical deterioration. Time spent obtaining history from patient or surrogate, discussions with consultants, development of treatment plan with patient or surrogate, evaluation of patient's response to treatment, examination of patient, ordering and performing treatments and interventions, ordering and review of laboratory studies, re-evaluation of patient's condition, ordering and review of radiographic studies and review of old charts Discharge - Discharge Clinical Impression: Bilateral pleural effusion, Hyperkalemia Respiratory failure Qualifiers: Chronicity: acute Respiratory failure complication: hypoxia Qualified Code(s): J96.01 - Acute respiratory failure with hypoxia Anemia Qualifiers: Anemia type: other cause Other causes of anemia: other cause, not classified Qualified Code(s): D64.89 - Other specified anemias Condition: Stable Disposition: ADMITTED INPATIENT Admitting Provider: Kain (Hospitalist) Unit Admitted: IMCU Referrals: RAQUEL CROSS MD [ACTIVE STAFF] - Follow up as needed
[2019-02-06 14:06] LABS: ABSOLUTE BASOPHILS # (AUTO) 0.1 10^3/uL (0.0-0.2); ABSOLUTE EOSINOPHILS # (AUTO) 0.3 10^3/uL (0.0-0.6); ABSOLUTE LYMPHOCYTES (AUTO) 0.6 10^3/uL (0.5-4.7); ABSOLUTE MONOCYTES (AUTO) 0.6 10^3/uL (0.1-1.4); ABSOLUTE NEUT (AUTO) 9.6 10^3/uL (1.7-8.2); BASOPHILS % (AUTO) 0.6 % (0-2); EOSINOPHILS % (AUTO) 2.4 % (0-6); HEMATOCRIT 23.3 % (37.9-51.0); LYMPHOCYTES % (AUTO) 5.2 % (13-45); MEAN CORPUSCULAR HEMOGLOBIN 28.3 pg (27.0-33.4); MEAN CORPUSCULAR HGB CONC 31.7 g/dL (32.0-36.0); MEAN CORPUSCULAR VOLUME 89 fl (80-97); MONOCYTES % (AUTO) 5.6 % (3-13); PLATELET COUNT 242 10^3/uL (150-450); RED BLOOD COUNT 2.61 10^6/uL (4.35-5.55); RED CELL DISTRIBUTION WIDTH 19.2 % (11.5-14.0); SEGMENTED NEUTROPHILS % (AUTO) 86.2 % (42-78); TOTAL CELLS COUNTED % (AUTO) 100 %; WHITE BLOOD COUNT 11.1 10^3/uL (4.0-10.5)
[2019-02-06 14:11] LABS: HEMOGLOBIN 7.4 g/dL (13.5-17.0)
[2019-02-06 14:22] LABS: ANION GAP 7 (5-19); BLOOD UREA NITROGEN 42 mg/dL (7-20); CALCIUM 9.4 mg/dL (8.4-10.2); CARBON DIOXIDE 29 mmol/L (22-30); CHLORIDE 98 mmol/L (98-107); GLUCOSE 118 mg/dL (75-110); POTASSIUM 5.3 mmol/L (3.6-5.0); SODIUM 134.1 mmol/L (137-145)
--- NOTE | 2019-02-06 14:27 | RADIOLOGY REPORT (SQ) ---
EXAM DESCRIPTION: CHEST SINGLE VIEW COMPLETED DATE/TIME: 02/06/2019 2:17 pm REASON FOR STUDY: shortness of breath COMPARISON: 11/29/2018 EXAM PARAMETERS: NUMBER OF VIEWS: One view. TECHNIQUE: Single frontal radiographic view of the chest acquired. RADIATION DOSE: NA LIMITATIONS: None. FINDINGS: LUNGS AND PLEURA: Redemonstrated left-sided pleural effusion with a new small right-sided pleural effusion. MEDIASTINUM AND HILAR STRUCTURES: No masses. Contour normal. HEART AND VASCULAR STRUCTURES: Cardiomegaly status post median sternotomy with aortic valve stent end ograft. BONES: No acute findings. HARDWARE: None in the chest. OTHER: No other significant finding. IMPRESSION: Redemonstrated left-sided pleural effusion with associated atelectasis or consolidation. There is a new small right-sided pleural effusion. Unchanged cardiomegaly. TECHNICAL DOCUMENTATION: JOB ID: [id number] [employer]- All Rights Reserved Reading location - IP/workstation name: [email or web address]
[2019-02-06 14:34] LABS: TROPONIN I 0.021 ng/mL
[2019-02-06 15:12] LABS: ARTERIAL BLOOD BASE EXCESS 4.8 mmol/L; ARTERIAL BLOOD HCO3 29.3 mmol/L (20-24); ARTERIAL BLOOD O2 SATURATION 96.7 % (94-98); ARTERIAL BLOOD PCO2 43.2 mmHg (35-45); ARTERIAL BLOOD PH 7.45 (7.35-7.45); ARTERIAL BLOOD PO2 84.9 mmHg (80-100); ARTERIAL BLOOD TOTAL CO2 30.6 mmol/L (23-27)
[2019-02-06 15:14] LABS: ARTERIAL BLOOD FIO2 30%
--- NOTE | 2019-02-06 15:21 | EKG REPORT ---
SEVERITY:- BORDERLINE ECG - SINUS RHYTHM PROBABLE LEFT ATRIAL ABNORMALITY BORDERLINE PROLONGED QT INTERVAL : Confirmed by: Felipe Chow MD 06-Feb-2019 15:20:03
[2019-02-06] MEDS ORDERED: LEVALBUTEROL HCL NEB 0.63 MG/3 ML AMPUL NEB PRN (15:40)
[2019-02-06] MEDS ORDERED: PIPERACILLIN/TAZOBACTAM 3.375 GM VIAL IV SCH (16:00)
[2019-02-06] MEDS ORDERED: PANTOPRAZOLE SODIUM 20 MG TABLET.DR PO SCH (16:00)
[2019-02-06] MEDS ORDERED: VANCOMYCIN HCL INJ 1000 MG VIAL IV SCH (16:00)
--- NOTE | 2019-02-06 16:24 | PDOC H&P ---
History of Present Illness Admission Date/PCP: 02/06/19 15:10 Patient complains of: Shortness of breath and hypoxia History of Present Illness: DANE CASTLE is a 78 year old male history of ESRD on hemodialysis Wednesday atrial fibrillation not on anticoagulation, coronary artery disease with triple bypass, COPD, abdominal aortic aneurysm repair, artificial facial wall replacement, hypertension, anemia, peripheral arterial disease, history of TB treated with the 9 months of anti-TB medications probably he is exposed to TB came to the emergency room with complaints of shortness of breath for the last 6 days. As per the he is waking up for the last 6 days with the severe shortness of breath and gasping for air. He went to the dialysis today after 10-minute on the dialysis machine he turned blue pulse ox dropped to 80s blood pressure went up to 201/67 EMS was called and he was brought to the emergency room for further evaluation. In the emergency room he was placed on BiPAP and chest x-ray shows bilateral pleural effusions especially the left pleural effusion which was large. As per the patient was in [place] 2 weeks ago for right pleural effusion with a chest tube placement and work-up was negative for carcinoma. pt is getting dialysis in the ER now. Patient is a full code as per the family member. Past Medical History Cardiac Medical History: Reports: Coronary Artery Disease - PVD, Myocardial Infarction - [place] X3, Hypertension Pulmonary Medical History: Reports: Asthma, Chronic Obstructive Pulmonary Disease (COPD) Denies: Bronchitis, Pneumonia Neurological Medical History: Denies: Seizures Renal/ Medical History: Reports: End Stage Renal Disease - dialysis x 1 wk Musculoskeltal Medical History: Denies: Arthritis Hematology: Reports: Anemia Past Surgical History Past Surgical History: Reports: Other - Abdominal aortic aneurysm repair, CABG with triple bypass. Social History Information Source: Patient Lives with: Family Smoking Status: Former Smoker Frequency of Alcohol Use: None Hx Recreational Drug Use: No Hx Prescription Drug Abuse: No - Advance Directive Resuscitation Status: Full Code Family History Family History: Reviewed & Not Pertinent Parental Family History Reviewed: Yes - History of cancers, hypertension and heart disease. Children Family History Reviewed: Yes Sibling(s) Family History Reviewed.: Yes Medication/Allergy Allergies/Adverse Reactions: niacin [Niacin] Allergy (Mild, Verified 02/06/19 14:40) Flushing Review of Systems ROS unobtainable: Other - 12-day history obtained from his . Constitutional: PRESENT: fatigue, weakness. ABSENT: fever(s), headache(s), night sweats Eyes: ABSENT: visual disturbances Ears: ABSENT: hearing changes Nose, Mouth, and Throat: ABSENT: sore throat Cardiovascular: ABSENT: chest pain, dyspnea on exertion, edema, orthropnea, palpitations Respiratory: PRESENT: dyspnea Gastrointestinal: ABSENT: diarrhea, dysphagia, heartburn, hematemesis, nausea, vomiting Integumentary: ABSENT: rash, wounds Neurological: ABSENT: abnormal gait, abnormal speech, confusion, dizziness, focal weakness, syncope Psychiatric: ABSENT: anxiety, depression, homidical ideation, suicidal ideation Physical Exam Vital Signs: Temp Pulse Resp BP Pulse Ox 16 144/55 H 100 02/06/19 15:00 02/06/19 14:01 02/06/19 15:00 Intake & Output 02/05/19 02/06/19 02/07/19 06:59 06:59 06:59 Weight 70.307 kg General appearance: PRESENT: other - In mild to moderate distress on BiPAP. Teeth exam: PRESENT: poor dentation Neck exam: ABSENT: carotid bruit, JVD, lymphadenopathy, thyromegaly Respiratory exam: PRESENT: crackles, decreased breath sounds Cardiovascular exam: PRESENT: irregular rhythm GI/Abdominal exam: PRESENT: normal bowel sounds, soft. ABSENT: distended, guarding, mass, organolmegaly, rebound, tenderness Rectal exam: PRESENT: deferred Extremities exam: PRESENT: full ROM. ABSENT: calf tenderness, clubbing, pedal edema Neurological exam: PRESENT: alert, awake, oriented to person, oriented to place, oriented to time, oriented to situation, CN II-XII grossly intact. ABSENT: motor sensory deficit Psychiatric exam: PRESENT: appropriate affect, normal mood. ABSENT: homicidal ideation, suicidal ideation Results Laboratory Results: 02/06/19 13:49 02/06/19 13:49 02/06/19 02/06/19 02/06/19 13:49 13:49 14:50 WBC 11.1 H RBC 2.61 L Hgb 7.4 L Hct 23.3 L MCV 89 MCH 28.3 MCHC 31.7 L RDW 19.2 H Plt Count 242 Seg Neutrophils % 86.2 H Lymphocytes % 5.2 L Monocytes % 5.6 Eosinophils % 2.4 Basophils % 0.6 Absolute Neutrophils 9.6 H Absolute Lymphocytes 0.6 Absolute Monocytes 0.6 Absolute Eosinophils 0.3 Absolute Basophils 0.1 Carbonic Acid HCO3/H2CO3 Ratio ABG pH ABG pCO2 ABG pO2 ABG HCO3 ABG O2 Saturation ABG Base Excess FiO2 Sodium 134.1 L Potassium 5.3 H Chloride 98 Carbon Dioxide 29 Anion Gap 7 BUN 42 H Creatinine 5.39 H Est GFR ( Amer) 13 L Est GFR (Non-Af Amer) 10 L Glucose 118 H Calcium 9.4 Blood Type A POSITIVE Antibody Screen NEGATIVE 02/06/19 15:00 WBC RBC Hgb Hct MCV MCH MCHC RDW Plt Count Seg Neutrophils % Lymphocytes % Monocytes % Eosinophils % Basophils % Absolute Neutrophils Absolute Lymphocytes Absolute Monocytes Absolute Eosinophils Absolute Basophils Carbonic Acid 1.30 HCO3/H2CO3 Ratio 22:1 ABG pH 7.45 ABG pCO2 43.2 ABG pO2 84.9 ABG HCO3 29.3 H ABG O2 Saturation 96.7 ABG Base Excess 4.8 FiO2 30% Sodium Potassium Chloride Carbon Dioxide Anion Gap BUN Creatinine Est GFR ( Amer) Est GFR (Non-Af Amer) Glucose Calcium Blood Type Antibody Screen 02/06/19 13:49 Troponin I 0.021 NT-Pro-B Natriuret Pep 93353 H Impressions: Chest X-Ray 02/06/19 13:41 IMPRESSION: Redemonstrated left-sided pleural effusion with associated atelectasis or consolidation. There is a new small right-sided pleural effusion. Unchanged cardiomegaly. Assessment and Plan - Diagnosis (1) Acute and chronic respiratory failure Is this a current diagnosis for this admission?: Yes Plan: 02/06/20195825-1-gn[age]-old male with multiple medical problems admitted with the severe hypoxia pulse ox is noted to be in the 80s in the dialysis unit he was transferred by EMS to the emergency room here he was placed on BiPAP in the emergency room chest x-ray shows bilateral pleural effusions especially large one on the left side. Patient is receiving dialysis in the emergency room. Plan to put him in IMCU is a full code. To use BiPAP on as needed basis. Start on Xopenex nebulization. Blood cultures urine cultures requested I did start an IV vancomycin and IV Zosyn. Started Lovenox 30 mg subcu daily and GI prophylaxis. Nephrology consult was requested. CT chest without contrast is requested. (2) Hyperkalemia Is this a current diagnosis for this admission?: Yes Plan: 02/06/2019-patient serum potassium is 5.3. Hyperkalemia may be secondary to missed dialysis. Patient is receiving hemodialysis now. (3) Bilateral pleural effusion Is this a current diagnosis for this admission?: Yes Plan: Patient came in with bilateral pleural effusions especially the large pleural effusion on the left side. It may be secondary to end-stage renal disease/congestive heart failure. CT chest without contrast was requested for further information. (4) Atrial fibrillation Is this a current diagnosis for this admission?: No Plan: 02/04/2019-patient has history of chronic atrial fibrillation. Not on anticoagulation because of the recent surgeries. Presently is only on aspirin and Plavix also discontinued as per the . We are going to put the patient on Lovenox 30 mg subcu daily. Continue the aspirin. (5) CHF (congestive heart failure) Is this a current diagnosis for this admission?: No Plan: 02/06/2019-patient has history of congestive heart failure as per the family we do not have any recent echocardiogram report available. He came in with cardiomegaly and bilateral pleural effusions most likely he has a chronic systolic heart failure. (6) ESRD (end stage renal disease) Is this a current diagnosis for this admission?: No Plan: 02/04/2019-patient has history of end-stage renal disease. He goes to dialysis Wednesday. He went to the dialysis today and and found to be hypoxic and in hypertensive urgency prior to the emergency room for further evaluation. During the dialysis in the emergency room. (8) Hypertensive urgency Is this a current diagnosis for this admission?: Yes Plan: 02/04/2019-patient came in with black presence of 201/67. Hypertensive urgency most likely secondary to missed dialysis and fluid overload. Patient is receiving the dialysis in the emergency room. - Time Time Spent with patient: 25-34 minutes Medications reviewed and adjusted accordingly: Yes Anticipated discharge: Home
[2019-02-06] MEDS ORDERED: ENOXAPARIN SODIUM INJ 30 MG/0.3 ML DISP.SYRIN SUBCUT SCH (16:30)
[2019-02-06] MEDS ORDERED: PIPERACILLIN SODIUM/TAZOBACTAM 2.25 GM in NORMAL SALINE 50 ML IV SCH ×2 (18:00→19:00)
[2019-02-06] MEDS ORDERED: VANCOMYCIN HCL 1,500 MG in DEXTROSE 5%-WATER 250 ML IV ONE ×2 (18:00→19:30)
--- NOTE | 2019-02-06 21:52 | RADIOLOGY REPORT (SQ) ---
EXAM DESCRIPTION: CT CHEST WITHOUT IV CONTRAST COMPLETED DATE/TME: 02/06/2019 00:00 CLINICAL HISTORY: 78 years, Male, shortness of breath COMPARISON: Prior study from 12/28/2018 TECHNIQUE: Noncontrast CT of the chest was performed. Coronal and sagittal reformations were created. Images stored on PACS. All CT scanners at this facility use dose modulation, iterative reconstruction, and/or weight based dosing when appropriate to reduce radiation dose to as low as reasonably achievable (ALARA). [facility]: Dose Right [facility]: CareDose [facility]: Dose Right [facility]: Teradose 4D [facility]: [employer] LIMITATIONS: None. FINDINGS: Focal opacity is noted about the dependent portion of the trachea extending to the ludy, indicating adherent mucus. Central airways are otherwise patent. Lung windows show a moderate right pleural effusion with associated partial passive collapse of the right lower lobe. There is a small left pleural effusion with associated left basilar atelectasis. This appears at least partially loculated laterally. In addition, more focal consolidation is noted about the lingula. Overall, findings about the left lung appears substantially improved from the previous exam dated 11/30/2018. Mild upper zone predominant emphysematous changes are evident along with biapical scarring. No suspicious pulmonary nodules are evident. Mediastinal windows show a mildly enlarged precarinal lymph node measuring 1.8 x 1.4 cm in size on image 21 of series 3. There is also a mildly enlarged subcarinal lymph node measuring 1.9 x 1.4 cm in size on image 26 of series 3. Calcifications are evident about the coronary vessels and thoracic aorta. Aortic valve replacement is evident. Limited evaluation of the upper abdomen reveals an intermediate density lesion emanating from the upper pole of the right kidney measuring 2.1 x 2.8 cm in size. An additional subcentimeter hyperdense lesion emanates from the upper pole the right kidney, measuring 88 Hounsfield units internally consistent with a hemorrhagic/proteinaceous cyst. A similar-appearing hemorrhagic/pertinacious cyst is noted slightly more inferiorly within the upper pole the right kidney. Additional fluid density lesions are noted about the remainder of the visualized portions of both kidneys, likely indicating simple cysts. Vascular calcifications are evident about the upper abdomen. In addition, there is mild aneurysmal dilatation of the abdominal aorta measuring 3.1 x 3.0 cm in size just below the origins of the renal arteries. Bone windows show no destructive osseous lesions. IMPRESSION: Substantial interval decrease in size of left-sided pleural effusion. Only a small amount of residual fluid remains, some which appears loculated laterally. New moderately sized right pleural effusion with partial passive collapse of the right lower lobe. Focal consolidation within the lingula, potentially indicating atelectasis though superimposed infection is also a possibility. Mediastinal lymph node enlargement, likely reactive. Fluid density lesions located about the upper poles of both kidneys, incompletely assessed on this examination though most likely indicative of simple cysts. However, one the lesions about the upper pole of the right kidney is indeterminate given its attenuation characteristics. Consider further assessment with renal ultrasound. 3.1 cm abdominal aortic aneurysm. Recommend follow-up every 3 years. Reference: J Vasc Surg 2009 Oct;50(4 Suppl):S2-49. TECHNICAL DOCUMENTATION: Quality ID # [id number]: Final reports with documentation of one or more dose reduction techniques (e.g., Automated exposure control, adjustment of the mA and/or kV according to patient size, use of iterative reconstruction technique) copyright 2011 [employer]- All Rights Reserved
[2019-02-07 00:09] VITALS: BP 136/57
--- NOTE | 2019-02-07 00:11 | Left Against Medical Advice ---
Against Medical Advice Admission Date/Time: 02/06/19 15:10 Primary Care Provider: Date of Patient Emigration: 02/07/19 - Diagnosis: (1) Acute and chronic respiratory failure Is this a current diagnosis for this admission?: Yes (2) Atrial fibrillation Is this a current diagnosis for this admission?: Yes (3) CHF (congestive heart failure) Is this a current diagnosis for this admission?: Yes (4) ESRD (end stage renal disease) Is this a current diagnosis for this admission?: Yes (5) Hypertensive urgency Is this a current diagnosis for this admission?: Yes (6) Bilateral pleural effusion Is this a current diagnosis for this admission?: Yes (7) Hyperkalemia Is this a current diagnosis for this admission?: Yes - Summary: Summary: Please see Admission and Progress Notes as well. DANE CASTLE is a 78 M, who LEFT AGAINST MEDICAL ADVICE. The Patient was admitted on 02/06/19 15:10. DANE CASTLE is a 78 year old male history of ESRD on hemodialysis Wednesday atrial fibrillation not on anticoagulation, coronary artery disease with triple bypass, COPD, abdominal aortic aneurysm repair, artificial facial wall replacement, hypertension, anemia, peripheral arterial disease, history of TB treated with the 9 months of anti-TB medications probably he is exposed to TB came to the emergency room with complaints of shortness of breath for the last 6 days. As per the he is waking up for the last 6 days with the severe shortness of breath and gasping for air. He went to the dialysis today after 10-minute on the dialysis machine he turned blue pulse ox dropped to 80s blood pressure went up to 201/67 EMS was called and he was brought to the emergency room for further evaluation. In the emergency room he was placed on BiPAP and chest x-ray shows bilateral pleural effusions especially the left pleural effusion which was large. As per the patient was in [place] 2 weeks ago for right pleural effusion with a chest tube placement and work-up was negative for carcinoma. The patient received hemodialysis in the emergency room and since being placed in a hospital room was delayed he felt well enough to leave the hospital AMA and as such just prior to midnight I visited with him to evaluate that it was clinically safe for him to leave the hospital even though not medically advised. He was prepared to sign his AGAINST MEDICAL ADVICE forms to leave shortly after midnight.
--- NOTE | 2019-02-07 15:16 | PDOC CONSULTATION ---
Consultation Consult Date: 02/06/19 Consult reason:: ESRD for urgent dialysis History of Present Illness Admission Date/PCP: 02/06/19 15:10 History of Present Illness: DANE CASTLE is a 78 year old male with a history of ESRD on hemodialysis Wednesday, Hypertension, atrial fibrillation not on anticoagula tion, coronary artery disease with triple bypass, COPD, abdominal aortic aneurysm repair, anemia, peripheral arterial disease, history of TB treated with the 9 months of anti-TB medications was admitted with progressive shortness of breath of a few days duration. He was found to be desaturating and clinically symptomatic from hypoxia soon after he was begun on dialysis at the outpatient [facility]. He denies any history of chest pains. However he has been having progressive exertional and orthopnea which is been progressive over the last couple of weeks. Denies any history of fever or chills. The patient was in [place] 2 weeks ago for right pleural effusion with a chest tube placement and work-up was negative for carcinoma. No history of any constitutional symptoms. Patient is currently undergoing dialysis urgently in the ER when I see him. He is on BiPAP. By the time I am seeing him he is feeling a whole lot better and is able to speak through the BiPAP relatively comfortably.Labs and medications were reviewed. Dialysis orders were reviewed with the treating dialysis nurse. Past Medical History Cardiac Medical History: Reports: Coronary Artery Disease - PVD, Hypertension- primary, Myocardial Infarction - [place] X3 Pulmonary Medical History: Reports: Asthma, Chronic Obstructive Pulmonary Disease (COPD) Denies: Bronchitis, Pneumonia Neurological Medical History: Denies: Seizures Renal/ Medical History: Reports: End Stage Renal Disease - dialysis x 1 wk, Secondary Hyperparathyroidism Musculoskeltal Medical History: Denies: Arthritis Hematology Medical History: Reports Anemia of Chronic Kidney Disease Past Surgical History Past Surgical History: Reports: Other - Abdominal aortic aneurysm repair, CABG with triple bypass. Social History Lives with: Family Smoking Status: Former Smoker Frequency of Alcohol Use: None Hx Recreational Drug Use: No Hx Prescription Drug Abuse: No - Advance Directive Resuscitation Status: Full Code Family History Parental Family History Reviewed: No Children Family History Reviewed: No Sibling(s) Family History Reviewed.: No Medication/Allergy Home Medications: Acetaminophen [Tylenol 325 mg Tablet] 650 mg PO PRN PRN 02/06/19 Albuterol Sulfate [Proair Hfa Inhalation Aerosol 8.5 gm Mdi] 2 puff IH Q4HP PRN 02/06/19 Albuterol Sulfate [Ventolin 0.083% Neb 2.5 mg/3 ml Ampul] 1 vial NEB Q6HP PRN 02/06/19 Allopurinol [Zyloprim 100 mg Tablet] 100 mg PO DAILY 02/06/19 Amiodarone HCl [Pacerone 100 mg Tablet] 1 tab PO BID 02/06/19 Amlodipine Besylate [Norvasc 2.5 mg Tablet] 2.5 mg PO DAILY 02/06/19 Aspirin [Ecotrin] 81 mg PO DAILY 02/06/19 Calcium Acetate [Phoslo 667 Mg Capsule] 2 cap PO ASDIR PRN 02/06/19 Cholecalciferol (Vitamin D3) [Vitamin D3] 5,000 unit PO DAILY 02/06/19 Cyanocobalamin/Folic AC/Vit B6 [Folbic Tablet] 1 each PO DAILY 02/06/19 Cyclobenzaprine HCl [Flexeril 5 mg Tablet] 5 mg PO TID 02/06/19 Doxycycline Hyclate [Vibramycin] 100 mg PO DAILY 02/06/19 Eszopiclone [Lunesta] 2 mg PO QHS 02/06/19 Ezetimibe [Zetia 10 mg Tablet] 10 mg PO DAILY 02/06/19 Finasteride [Proscar 5 mg Tablet] 5 mg PO DAILY 02/06/19 Furosemide [Lasix 20 mg Tablet] 20 mg PO QAM 02/06/19 Isosorbide Mononitrate [Imdur 30 mg Tablet.er] 30 mg PO BID 02/06/19 Lisinopril [Prinivil 2.5 mg Tablet] 5 mg PO DAILY 02/06/19 Magnesium Oxide [Magnesium] 250 mg PO DAILY 02/06/19 Metoprolol Tartrate [Lopressor 100 mg Tablet] 100 mg PO Q12 02/06/19 Midodrine HCl [Proamatine 5 Mg Tablet] 5 mg PO ASDIR PRN 02/06/19 Mirtazapine [Remeron 15 mg Tablet] 15 mg PO QHS 02/06/19 Nitroglycerin 0.4 mg SL PRN PRN 02/06/19 Ondansetron HCl [Zofran 4 mg Tablet] 4 mg PO Q8HP PRN 02/06/19 Oxycodone HCl [Oxy-Ir 5 mg Tablet] 1 - 2 tab PO Q6HP PRN 02/06/19 Pantoprazole Sodium [Protonix [address] Packet] 40 mg PO BID 02/06/19 Rosuvastatin Calcium [Crestor 10 mg Tablet] 10 mg PO DAILY 02/06/19 Tiotropium [place] [Spiriva Handihaler 5 Cap/Kit (18 Mcg/Cap)] 1 cap IH DAILY 02/06/19 Tramadol HCl [Ultram] 100 mg PO TIDP PRN 02/06/19 Allergies/Adverse Reactions: niacin [Niacin] Allergy (Mild, Verified 02/06/19 14:40) Flushing Review of Systems Constitutional: PRESENT: fatigue, weakness. ABSENT: fever(s), headache(s), night sweats Nose, Mouth, and Throat: ABSENT: mouth pain, sore throat Cardiovascular: PRESENT: dyspnea on exertion, edema, orthropnea. ABSENT: chest pain, palpitations Respiratory: PRESENT: dyspnea. ABSENT: cough, hemoptysis Gastrointestinal: PRESENT: abdominal pain. ABSENT: bloating, coffee ground emesis, diarrhea, dysphagia, heartburn, hematemesis, hematochezia Genitourinary: ABSENT: dysuria, hematuria Integumentary: ABSENT: erythema, lesions, pruritus, rash Neurological: ABSENT: abnormal movements, abnormal speech, confusion, focal wea kness, frequent falls, lack of coordination, memory loss, tremor(s) Psychiatric: ABSENT: hallucinations, homidical ideation, suicidal ideation Hematologic/Lymphatic: ABSENT: easy bleeding, easy bruising, lymphadenopathy Physical Exam Vital Signs: Temp Pulse Resp BP Pulse Ox 17 132/56 H 100 02/06/19 16:25 02/06/19 16:25 02/06/19 16:25 Intake & Output 02/05/19 02/06/19 02/07/19 06:59 06:59 06:59 Weight 70.307 kg General appearance: PRESENT: mild distress - Currently he is on the BiPAP but able to speak through it. Eye exam: PRESENT: conjunctiva pink, EOMI, PERRLA Ear exam: PRESENT: normal external ear exam Mouth exam: PRESENT: moist, neck supple Neck exam: ABSENT: lymphadenopathy, meningismus, tenderness, thyromegaly, tracheal deviation Respiratory exam: PRESENT: clear to auscultation cynthia, decreased breath sounds. ABSENT: crackles Cardiovascular exam: PRESENT: +S1, +S2 GI/Abdominal exam: PRESENT: normal bowel sounds, soft. ABSENT: organomegaly, tenderness Extremities exam: PRESENT: pedal edema Neurological exam: PRESENT: altered, awake, oriented to person, oriented to plac e Psychiatric exam: PRESENT: anxious Skin exam: ABSENT: erythema, mottled, rash Results Laboratory Results: 02/06/19 13:49 02/06/19 13:49 02/06/19 02/06/19 02/06/19 13:49 13:49 14:50 WBC 11.1 H RBC 2.61 L Hgb 7.4 L Hct 23.3 L MCV 89 MCH 28.3 MCHC 31.7 L RDW 19.2 H Plt Count 242 Seg Neutrophils % 86.2 H Lymphocytes % 5.2 L Monocytes % 5.6 Eosinophils % 2.4 Basophils % 0.6 Absolute Neutrophils 9.6 H Absolute Lymphocytes 0.6 Absolute Monocytes 0.6 Absolute Eosinophils 0.3 Absolute Basophils 0.1 Carbonic Acid HCO3/H2CO3 Ratio ABG pH ABG pCO2 ABG pO2 ABG HCO3 ABG O2 Saturation ABG Base Excess FiO2 Sodium 134.1 L Potassium 5.3 H Chloride 98 Carbon Dioxide 29 Anion Gap 7 BUN 42 H Creatinine 5.39 H Est GFR ( Amer) 13 L Est GFR (Non-Af Amer) 10 L Glucose 118 H Calcium 9.4 Blood Type A POSITIVE Antibody Screen NEGATIVE 02/06/19 15:00 WBC RBC Hgb Hct MCV MCH MCHC RDW Plt Count Seg Neutrophils % Lymphocytes % Monocytes % Eosinophils % Basophils % Absolute Neutrophils Absolute Lymphocytes Absolute Monocytes Absolute Eosinophils Absolute Basophils Carbonic Acid 1.30 HCO3/H2CO3 Ratio 22:1 ABG pH 7.45 ABG pCO2 43.2 ABG pO2 84.9 ABG HCO3 29.3 H ABG O2 Saturation 96.7 ABG Base Excess 4.8 FiO2 30% Sodium Potassium Chloride Carbon Dioxide Anion Gap BUN Creatinine Est GFR ( Amer) Est GFR (Non-Af Amer) Glucose Calcium Blood Type Antibody Screen 02/06/19 13:49 Troponin I 0.021 NT-Pro-B Natriuret Pep 36684 H Impressions: Chest X-Ray 02/06/19 13:41 IMPRESSION: Redemonstrated left-sided pleural effusion with associated atelectasis or consolidation. There is a new small right-sided pleural effusion. Unchanged cardiomegaly. Assessment & Plan - Diagnosis (1) Acute anemia Plan: Patient's hemoglobin is 7+. He might respond well to do dialysis and ultrafiltration and would recheck hemoglobin prior to decision on transfusion. Adjust erythropoietin meanwhile. (2) Acute and chronic respiratory failure Is this a current diagnosis for this admission?: Yes Plan: Most likely acute COPD then congestive heart failure. See response to dialysis. Currently on BiPAP. (3) Atrial fibrillation Is this a current diagnosis for this admission?: No Plan: Rate controlled. Monitor. (4) Bilateral pleural effusion Is this a current diagnosis for this admission?: Yes Plan: Chronic and recurrent. Has had workup including evaluation said to be done 2 weeks ago. (5) ESRD (end stage renal disease) Is this a current diagnosis for this admission?: No Plan: Patient currently being dialyzed and vital signs are stable. Dialysis is being supervised to ensure safe and smooth procedure. Plan to remove between 2 and 3 L as tolerated. Dialysis orders reviewed and discussed with the treating dialysis nurse N[place]. (6) Hyperkalemia Is this a current diagnosis for this admission?: Yes Plan: Mild. Should respond to dialysis. Monitor.
== END 2019-02-07 00:11 | disposition home or self-care (01) | DRG 189 ==
LOC: ER 13:20 → EH 15:10
PROVIDERS: ADMIT Internal Medicine; ATTEND Internal Medicine
PROC: 5A1D70Z Performance of Urinary Filtration, Intermittent, Less than 6 Hours Per Day (ICD-10-PCS; principal; 2019-02-06)
DX: J96.21 Acute and chronic respiratory failure with hypoxia (principal); N18.6 End stage renal disease; I13.2 Hypertensive heart and chronic kidney disease with heart failure and with stage 5 chronic kidney disease, or end stage renal disease; I16.1 Hypertensive emergency; N25.81 Secondary hyperparathyroidism of renal origin; I50.22 Chronic systolic (congestive) heart failure; E87.5 Hyperkalemia; I48.2 Chronic atrial fibrillation; Z99.2 Dependence on renal dialysis; I25.10 Atherosclerotic heart disease of native coronary artery without angina pectoris; Z95.1 Presence of aortocoronary bypass graft; J44.9 Chronic obstructive pulmonary disease, unspecified; I73.9 Peripheral vascular disease, unspecified; Z86.11 Personal history of tuberculosis; I25.2 Old myocardial infarction; D63.1 Anemia in chronic kidney disease; Z87.891 Personal history of nicotine dependence; Z79.82 Long term (current) use of aspirin; Z79.899 Other long term (current) drug therapy; Z88.8 Allergy status to other drugs, medicaments and biological substances
CPT/HCPCS: 36415; 71045; 71250; 80048; 82803; 83880; 84484; 85025; 86850; 86900; 86901; 87040; 93005; 93010; 94660; 99291; G0257; J2543; J3370; J7060

== ENCOUNTER 2019-02-15 19:06 | Emergency (ER) | payer MEDICARE, OTHER ==
--- NOTE | 2019-02-15 20:00 | ER Document Report ---
ED Medical Screen (RME) - General Chief Complaint: abnormal labs Stated Complaint: ABNORMAL LABS Time Seen by Provider: 02/15/19 19:57 Primary Care Provider: IRENE MACKEY PA-C [Primary Care Provider] - Follow up as needed Mode of Arrival: Ambulatory Information source: Patient TRAVEL OUTSIDE OF THE [place] IN LAST 30 DAYS: No - HPI Patient complains to provider of: SOB, LOW HEMOGLOBIN Notes: 02/15/19 19:59 Patient here with reports of low hemoglobin. The patient normally has a hemoglobin of about 8. Has been feeling short of breath with exertion over the last few days and had a hemoglobin checked today while at dialysis and was noted to be 6.4. He was told to come the ER to get a blood transfusion. He denies any chest pain. He does report that he feels short of breath with exertion. He also has a history of some pleural effusions as well. He was able to complete his dialysis today. No chest pain. No fever. Exam No distress, nontoxic-appearing. Diminished breath sounds in the bilateral bases with some expiratory wheezing. Systolic heart murmur noted. Pale skin. Scattered ecchymosis. Plan CBC, CMP, type and cross, EKG, chest x-ray, troponin. An initial examination was made on the patient as part of the triage process, and it was determined a more comprehensive evaluation was necessary. Initial labs were ordered and patient was transferred to another provider in the ED who assumed care and finished evaluation and plan. - Related Data Allergies/Adverse Reactions: niacin [Niacin] Allergy (Mild, Verified 02/15/19 19:10) [place] Past Medical History - Past Medical History Cardiac Medical History: Reports: Hx Coronary Artery Disease - PVD, Hx Heart Attack - [place] X3, Hx Hypertension Pulmonary Medical History: Reports: Hx Asthma, Hx COPD Denies: Hx Bronchitis, Hx Pneumonia Neurological Medical History: Reports: Hx Cerebrovascular Accident. Denies: Hx Seizures Renal/ Medical History: Reports: Hx End Stage Renal Disease - dialysis x 1 wk. Denies: Hx Peritoneal Dialysis Musculoskeltal Medical History: Denies Hx Arthritis Past Surgical History: Reports: Other - Abdominal aortic aneurysm repair, CABG with triple bypass. - Immunizations Hx Diphtheria, Pertussis, Tetanus Vaccination: No - THINKS HE HAD PNEU SHOT 2012 Influenza Administration Date for 07/2017 - 12/2017 Season: 07/18/18 Physical Exam - Vital signs Vitals: Temp Pulse Resp BP Pulse Ox 98.0 F 80 18 127/41 H 98 02/15/19 19:15 02/15/19 19:15 02/15/19 19:15 02/15/19 19:15 02/15/19 19:15 Course - Vital Signs Vital signs: Temp Pulse Resp BP Pulse Ox 98.0 F 80 18 127/41 H 98 02/15/19 19:15 02/15/19 19:15 02/15/19 19:15 02/15/19 19:15 02/15/19 19:15 Doctor's Discharge - Discharge Referrals: IRENE MACKEY PA-C [Primary Care Provider] - Follow up as needed
--- NOTE | 2019-02-15 20:53 | RADIOLOGY REPORT (SQ) ---
EXAM DESCRIPTION: XR CHEST 2 VIEWS COMPLETED DATE/TME: 02/15/2019 19:57 CLINICAL HISTORY: 78 years Male SOB COMPARISON: 02/06/2019 FINDINGS: Cardial mediastinal silhouette appears similar to the previous examination. There is pleural-based soft tissue density in the medial left upper lobe and lung apex which appears unchanged from the prior examination. Loculated left pleural fluid is noted. There is atelectasis in the lingula and left lung base. Moderate amount of right pleural fluid is present . Overall there may have been minimal interval improvement in infiltrate in the left chest when compared to the previous exam. IMPRESSION: Infiltrate and fluid in the left chest with some interval improvement of lingular infiltrate Soft tissue density in the left apex and medial left upper lobe which appears unchanged from the previous chest x-ray and CT examination. On review of the CT examination this appears to be slightly hyperdense and loculated and may reflect loculated area of hemothorax.. Recommend continued follow-up to document resolution Moderate right effusion
[2019-02-15 21:12] LABS: ABSOLUTE EOSINOPHILS # (AUTO) 0.2 10^3/uL (0.0-0.6); ABSOLUTE LYMPHOCYTES (AUTO) 0.9 10^3/uL (0.5-4.7); ABSOLUTE MONOCYTES (AUTO) 0.7 10^3/uL (0.1-1.4); ABSOLUTE NEUT (AUTO) 7.2 10^3/uL (1.7-8.2); BASOPHILS % (AUTO) 0.4 % (0-2); EOSINOPHILS % (AUTO) 2.5 % (0-6); HEMATOCRIT 20.5 % (37.9-51.0); LYMPHOCYTES % (AUTO) 10.1 % (13-45); MEAN CORPUSCULAR HEMOGLOBIN 28.1 pg (27.0-33.4); MEAN CORPUSCULAR HGB CONC 31.8 g/dL (32.0-36.0); MEAN CORPUSCULAR VOLUME 88 fl (80-97); MONOCYTES % (AUTO) 7.8 % (3-13); PLATELET COUNT 146 10^3/uL (150-450); RED BLOOD COUNT 2.31 10^6/uL (4.35-5.55); RED CELL DISTRIBUTION WIDTH 18.9 % (11.5-14.0); SEGMENTED NEUTROPHILS % (AUTO) 79.2 % (42-78); TOTAL CELLS COUNTED % (AUTO) 100 %; WHITE BLOOD COUNT 9.1 10^3/uL (4.0-10.5)
[2019-02-15 21:15] LABS: HEMOGLOBIN 6.5 g/dL (13.5-17.0)
[2019-02-15 21:31] LABS: ALANINE AMINOTRANSFERASE 23 U/L (21-72); ALBUMIN 2.9 g/dL (3.5-5.0); ALKALINE PHOSPHATASE 95 U/L (38-126); ANION GAP 8 (5-19); ASPARTATE AMINO TRANSFERASE 21 U/L (17-59); BILIRUBIN,DIRECT 0.3 mg/dL (0.0-0.4); BILIRUBIN,TOTAL 0.3 mg/dL (0.2-1.3); BLOOD UREA NITROGEN 17 mg/dL (7-20); CALCIUM 8.5 mg/dL (8.4-10.2); CARBON DIOXIDE 32 mmol/L (22-30); CHLORIDE 97 mmol/L (98-107); GLUCOSE 77 mg/dL (75-110); SODIUM 136.6 mmol/L (137-145); TOTAL PROTEIN 5.8 g/dL (6.3-8.2)
--- NOTE | 2019-02-15 22:04 | ER Document Report ---
ED General - General Chief Complaint: abnormal labs Stated Complaint: ABNORMAL LABS Time Seen by Provider: 02/15/19 19:57 Primary Care Provider: IRENE MACKEY PA-C [ALLIED HEALTH PROFESSIONAL] - Follow up as needed Mode of Arrival: Ambulatory Notes: Patient is a 78-year-old male who disease is on dialysis. Today after dialysis is hemoglobin was 6.5 and therefore he was called informed to come to the ER. Patient was recently admitted to the hospital and at that time his hemoglobin was 7.5. His hemoglobin usually runs between 7-8.5. He does have history of known pleural effusions. This is followed by [facility]. He says that his breathing is actually better than normal today. He says he was feeling little bit more weak than usual today. He denies any blood in his stool. No vomiting of blood. He denies any bleeding anywhere that he is aware of. He has no other complaints at this time. TRAVEL OUTSIDE OF THE [place] IN LAST 30 DAYS: No - Related Data Allergies/Adverse Reactions: niacin [Niacin] Allergy (Mild, Verified 02/15/19 19:10) [place] Past Medical History - General Information source: Patient - Social History Smoking Status: Former Smoker Frequency of alcohol use: None Drug Abuse: None Family History: Reviewed & Not Pertinent Patient has suicidal ideation: No Patient has homicidal ideation: No - Past Medical History Cardiac Medical History: Reports: Hx Coronary Artery Disease - PVD, Hx Heart Attack - [place] X3, Hx Hypertension Pulmonary Medical History: Reports: Hx Asthma, Hx COPD Denies: Hx Bronchitis, Hx Pneumonia Neurological Medical History: Reports: Hx Cerebrovascular Accident. Denies: Hx Seizures Renal/ Medical History: Reports: Hx End Stage Renal Disease - dialysis x 1 wk. Denies: Hx Peritoneal Dialysis Musculoskeletal Medical History: Denies Hx Arthritis Past Surgical History: Reports: Other - Abdominal aortic aneurysm repair, CABG with triple bypass. - Immunizations Hx Diphtheria, Pertussis, Tetanus Vaccination: No - THINKS HE HAD PNEU SHOT 2012 Hx Pneumococcal Vaccination: 10/18/12 Review of Systems - Review of Systems Notes: My Normal Review Basic REVIEW OF SYSTEMS: CONSTITUTIONAL : Denies fever, chills, or sweats. Some fatigue EENT: Denies eye, ear, throat, or mouth pain or symptoms. Denies nasal or sinus congestion. CARDIOVASCULAR: Denies chest pain. RESPIRATORY: Denies cough, cold, or chest congestion. Denies shortness of b reath, difficulty breathing, or wheezing. GASTROINTESTINAL: Denies abdominal pain. Denies nausea, vomiting, or diarrhea. MUSCULOSKELETAL: Denies neck or back pain or joint pain or swelling. SKIN: Denies rash or skin lesions. HEMATOLOGIC : Denies easy bruising or bleeding. Not currently on blood thinners. NEUROLOGICAL: Denies altered mental status or loss of consciousness. ALL OTHER SYSTEMS REVIEWED AND NEGATIVE. Physical Exam - Vital signs Vitals: Temp Pulse Resp BP Pulse Ox 98.0 F 80 18 127/41 H 98 02/15/19 19:15 02/15/19 19:15 02/15/19 19:15 02/15/19 19:15 02/15/19 19:15 - Notes Notes: General Appearance: Well nourished, alert, cooperative, no acute distress, no obvious discomfort. Well-appearing. Vitals: reviewed, See vital signs table. Eyes: PERRL, EOMI, Conjuctiva clear Mouth: No decreasd moisture Lungs: No wheezing, No rales, No rhonci, No accessory muscle use, good air exchange bilaterally. Heart: Normal rate, Regular rythm, No murmur, no rub Abdomen: Normal BS, soft, No rigidity, No abdominal tenderness, No guarding, no rebound, no abdominal masses, no organomegaly Extremities: good pulses in all extremities, no swelling or tenderness in the extremities, no edema. Fistula in right arm. Good palpable thrill. Good distal pulses. Skin: warm, dry, appropriate color, no rash Neuro: speech clear, oriented x 3, normal affect, responds appropriately to questions. Course - Re-evaluation Re-evalutation: 02/16/19 00:53 Patient is currently receiving transfusion. He is having no symptoms and doing well. 02/16/19 02:21 Patient's blood transfusion is almost completely finished. He says he feels improved and he looks very well. His lung bullock are clear. His vital signs are stable. I feel he safe to be discharged home. I encouraged him to have his hemoglobin rechecked at the end of his next dialysis in 2 days. I encouraged him return to ER if he has worsening weakness, difficulty breathing, dizziness, or if he feels unwell. Patient agrees with plan will be discharged home. Dictation of this chart was performed using voice recognition software; therefore, there may be some unintended grammatical errors. - Vital Signs Vital signs: Temp Pulse Resp BP Pulse Ox 98.1 F 80 25 H 128/51 H 93 02/16/19 01:12 02/15/19 19:15 02/16/19 01:46 02/16/19 01:46 02/16/19 01:46 - Laboratory Result Diagrams: 02/15/19 20:49 02/15/19 20:49 Laboratory results interpreted by me: 02/15/19 02/15/19 02/15/19 20:49 20:49 20:49 RBC 2.31 L Hgb 6.5 L Hct 20.5 L MCHC 31.8 L RDW 18.9 H Plt Count 146 L Seg Neutrophils % 79.2 H Lymphocytes % 10.1 L Sodium 136.6 L Chloride 97 L Carbon Dioxide 32 H Creatinine 2.51 H Est GFR ( Amer) 30 L Est GFR (Non-Af Amer) 25 L Total Protein 5.8 L Albumin 2.9 L Crossmatch See Detail - EKG Interpretation by Me Additional EKG results interpreted by me: 02/15/19 22:03 EKG is reviewed and interpreted by me. EKG shows sinus rhythm with a rate of [address] segment elevation or depression. No ischemic T wave inversions. RI interval, QRS duration are within normal range. QT interval is prolonged. Old EKG for comparison is from February 06, 2019. Discharge - Discharge Clinical Impression: Anemia Qualifiers: Anemia type: unspecified type Qualified Code(s): D64.9 - Anemia, unspecified Condition: Good Disposition: HOME, SELF-CARE Additional Instructions: Please follow up with your doctor in 2 days. Please have them recheck your hemoglobin after your next dialysis. Please return to the ER if you develop difficulty breathing, increasing weakness, pass out, or feel unwell.
[2019-02-15] MEDS ORDERED: NORMAL SALINE 250 ML IV PRN (22:15)
--- NOTE | 2019-02-15 23:03 | EKG REPORT ---
SEVERITY:- ABNORMAL ECG - SINUS RHYTHM PROBABLE LEFT ATRIAL ABNORMALITY PROBABLE LVH WITH SECONDARY REPOL ABNRM PROLONGED QT INTERVAL : Confirmed by: Cruz Isbell 15-Feb-2019 23:02:17
[2019-02-16 02:58] VITALS: BP 135/50
== END 2019-02-16 02:50 | disposition home or self-care (01) ==
LOC: ER 19:06
DX: D64.9 Anemia, unspecified (principal); Z87.891 Personal history of nicotine dependence; I25.10 Atherosclerotic heart disease of native coronary artery without angina pectoris; I25.2 Old myocardial infarction; J44.9 Chronic obstructive pulmonary disease, unspecified; I12.0 Hypertensive chronic kidney disease with stage 5 chronic kidney disease or end stage renal disease; N18.6 End stage renal disease; Z99.2 Dependence on renal dialysis
CPT/HCPCS: 93005; 99284; 86900; 86901; 36415; 36430; 86850; 85025; 80053; 84484; 86920; 71046; 93010; P9016

== ENCOUNTER → 2019-11-21 | Outpatient (CLI) | payer MEDICARE, OTHER ==
[2019-11-21 15:24] LABS: HEMATOCRIT 36.4 % (37.9-51.0); HEMOGLOBIN 11.9 g/dL (13.5-17.0); MEAN CORPUSCULAR HEMOGLOBIN 32.5 pg (27.0-33.4); MEAN CORPUSCULAR HGB CONC 32.8 g/dL (32.0-36.0); MEAN CORPUSCULAR VOLUME 99 fl (80-97); PLATELET COUNT 115 10^3/uL (150-450); RED BLOOD COUNT 3.67 10^6/uL (4.35-5.55); RED CELL DISTRIBUTION WIDTH 18.4 % (11.5-14.0); WHITE BLOOD COUNT 5.4 10^3/uL (4.0-10.5)
[2019-11-21 15:44] LABS: ALBUMIN 2.7 g/dL (3.5-5.0); ALKALINE PHOSPHATASE 159 U/L (38-126); ANION GAP 5 (5-19); ASPARTATE AMINO TRANSFERASE 20 U/L (17-59); BILIRUBIN,DIRECT 0.1 mg/dL (0.0-0.4); BILIRUBIN,TOTAL 0.4 mg/dL (0.2-1.3); BLOOD UREA NITROGEN 7 mg/dL (7-20); CALCIUM 8.2 mg/dL (8.4-10.2); CARBON DIOXIDE 31 mmol/L (22-30); CHLORIDE 99 mmol/L (98-107); CHOLESTEROL 104.32 mg/dL (0-200); GLUCOSE 76 mg/dL (75-110); POTASSIUM 4.2 mmol/L (3.6-5.0); TOTAL PROTEIN 5.5 g/dL (6.3-8.2); TRIGLYCERIDES 50 mg/dL (<150)
[2019-11-21 16:00] LABS: DIRECT LDL < 30 mg/dL (<100)
== END ==
LOC: OD 14:40
PROVIDERS: ATTEND Internal Medicine Cardiovascular Disease
DX: D69.6 Thrombocytopenia, unspecified (principal); I48.0 Paroxysmal atrial fibrillation; E78.2 Mixed hyperlipidemia; Z79.899 Other long term (current) drug therapy
CPT/HCPCS: 36415; 80048; 80061; 80076; 83735; 84443; 85027

== ENCOUNTER 2020-02-02 04:28 | Observation (INO) | payer MEDICARE ==
--- NOTE | 2020-02-02 05:03 | ER Document Report ---
ED Respiratory Problem - General Mode of Arrival: Medic Information source: Patient TRAVEL OUTSIDE OF THE [place] IN LAST 30 DAYS: No <TERESA BAER - Last Filed: 02/02/20 05:38> <ALISE REARDON - Last Filed: 02/02/20 08:22> - General Chief Complaint: Shortness Of Breath Stated Complaint: SHORTNESS OF BREATH Time Seen by Provider: 02/02/20 04:29 Notes: 79-year-old man presents to the emergency department via EMS history of a ccording to is had a difficulty breathing for the past 10 hours. Apparently missed dialysis on Wednesday, is due for outpatient dialysis today. EMS found the patient to have audible rales and blood pressure noted to be 192/104 heart rate of 120 respiratory rate 30 and O2 sat at 92% on room air. EMS placed the patient on CPAP, had given him 12.5 mg of Vasotec IV and nitroglycerin drip at 20 mics per minute. Patient has a history of dialysis, dementia, CHF, anemia, respiratory failure, and dementia. (TERESA BAER) - Related Data Allergies/Adverse Reactions: niacin [Niacin] Allergy (Mild, Verified 02/15/19 19:10) [place] Past Medical History - Social History Smoking Status: Unknown if Ever Smoked Family History: Reviewed & Not Pertinent Patient has suicidal ideation: No Patient has homicidal ideation: No - Past Medical History Cardiac Medical History: Reports: Hx Coronary Artery Disease - PVD, Hx Heart Attack - [place] X3, Hx Hypertension Pulmonary Medical History: Reports: Hx Asthma, Hx COPD Denies: Hx Bronchitis, Hx Pneumonia Neurological Medical History: Reports: Hx Cerebrovascular Accident. Denies: Hx Seizures Renal/ Medical History: Reports: Hx End Stage Renal Disease - dialysis x 1 wk. Denies: Hx Peritoneal Dialysis Musculoskeletal Medical History: Denies Hx Arthritis Past Surgical History: Reports: Other - Abdominal aortic aneurysm repair, CABG with triple bypass. - Immunizations Hx Diphtheria, Pertussis, Tetanus Vaccination: No - THINKS HE HAD PNEU SHOT 2012 Hx Pneumococcal Vaccination: 10/18/12 <TERESA BAER - Last Filed: 02/02/20 05:38> Review of Systems <TERESA BAER - Last Filed: 02/02/20 05:38> - Review of Systems Notes: Constitutional: Negative for fever. HENT: Negative for sore throat. Eyes: Negative for visual changes. Cardiovascular: + Chest pain. Respiratory: + Shortness of breath. Gastrointestinal: Negative for abdominal pain, vomiting or diarrhea. Genitourinary: Negative for dysuria. Musculoskeletal: Negative for back pain. Skin: Negative for rash. Neurological: Negative for headaches, weakness or numbness. 10 point ROS negative except as marked above and in HPI. (TERESA BAER) Physical Exam <TERESA BAER - Last Filed: 02/02/20 05:38> - Vital signs Vitals: Resp Pulse Ox 21 H 100 02/02/20 04:29 02/02/20 04:29 - Notes Notes: PHYSICAL EXAMINATION: Physical Exam: General: Acutely ill-appearing 79-year-old man in mild distress secondary to dyspnea. On CPAP HEENT: NC/AT, pupils equal round and reactive to light, MM moist,nares clear, oropharynx clear, airway patent Neck: supple, no adenopathy, no masses. Good range of motion Lungs: Bilateral wheezes, no wheezes CVS: Tachycardic rate and rhythm no murmur gallop or rub Abdomen: Soft, active, nontender, no masses, no hepatosplenomegaly Ext: No edema, clubbing or cyanosis. Neuro: Alert and responsive, moving all 4 extremities on command, cranial nerves intact, no focal findings Skin: Bruising on the upper extremities. PSYCH: Normal mood, normal affect. (TERESA BAER) Course - Laboratory Result Diagrams: 02/02/20 04:36 02/02/20 04:36 - Diagnostic Test Radiology reviewed: Image reviewed, Reports reviewed - Chest x-ray: Pulmonary edema, bilateral pleural effusions, cardiomegaly - EKG Interpretation by In EKG shows normal: Sinus rhythm - Sinus rhythm rate of 99, nonspecific intraventricular conduction delay, ST depressionV4-V6 <TERESA BAER - Last Filed: 02/02/20 05:38> - Laboratory Result Diagrams: 02/02/20 04:36 02/02/20 04:36 <ALISE REARDON - Last Filed: 02/02/20 08:22> - Re-evaluation Re-evalutation: 02/02/20 05:40 Patient found to have acute pulmonary edema, bilateral pleural effusions, hyperkalemia potassium of 6.2. I spoken with the manager transmission, Dr. Rea, states that patient can be dialyzed here at [facility]. The potassium was 6.2, will give 1 g of IV calcium gluconate., Will discontinue the nitroglycerin drip 1 inch of Nitropaste to the chest wall. Patient will be admitted to the hospitalist service. (TERESA BAER) 02/02/20 08:17 The patient was signed out to me at shift change. I was told the patient was admitted to the hospitalist and was awaiting dialysis. Apparently the patient had been on bipap and the night hospitalist didnt know this information. The day hospitalist team therefore consulted the ICU Attending who came to the ER to evaluate the patient. The ICU Attending and myself had conversation with the patient who had since removed his bipap and he told us he wanted to sign out against medical advice and go to his outpatient dialysis session today at 11am. I explained to the patient he has missed several days of dialysis and his potassium is critically elevated. I told the patient an elevated potassium can lead to and he runs the risk of dying by waiting until his outpatient appointment. The patient understood the risk and signed out of the ER AMA. (REARDON,ALISE Fitzgerald) - Vital Signs Vital signs: Temp Pulse Resp BP Pulse Ox 97.7 F 102 H 28 H 122/82 100 02/02/20 04:47 02/02/20 04:47 02/02/20 07:16 02/02/20 07:16 02/02/20 07:16 - Laboratory Laboratory results interpreted by me: 02/02/20 02/02/20 02/02/20 04:36 04:36 04:36 RBC 2.42 L Hgb 7.4 L Hct 23.2 L RDW 18.8 H Seg Neuts % (Manual) 94 H Lymphocytes % (Manual) 3 L Abs Neuts (Manual) 8.4 H Abs Lymphs (Manual) 0.3 L Sodium 133.7 L Potassium 6.2 H* Chloride 97 L Carbon Dioxide 31 H BUN 50 H Creatinine 5.55 H Est GFR ( Amer) 12 L Est GFR (MDRD) Non-Af 10 L Alkaline Phosphatase 141 H Creatine Kinase < 20 L NT-Pro-B Natriuret Pep [id number] H Total Protein 6.1 L Albumin 3.1 L Critical Care Note - Critical Care Note Total time excluding time spent on procedures (mins): 60 - Critical care time spent obtaining history from patient or surrogate, discussions with consultants, development of treatment plan with patient or surrogate, evaluation of patient's response to treatment, examination of patient, ordering and performing treatments and interventions, ordering and review of laboratory studies, re- evaluation of patient's condition, ordering and review of radiographic studies and review of old charts <TERESA BAER - Last Filed: 02/02/20 05:38> Discharge - Discharge Admitting Provider: Silas (Hospitalist) Unit Admitted: IMCU <TERESA BAER - Last Filed: 02/02/20 05:38> <ALISE REARDON - Last Filed: 02/02/20 08:22> - Discharge Clinical Impression: Hypertensive urgency, Hyperkalemia, ESRD (end stage renal disease) Respiratory failure Qualifiers: Chronicity: acute Respiratory failure complication: hypoxia Qualified Code(s): J96.01 - Acute respiratory failure with hypoxia CHF (congestive heart failure) Qualifiers: Heart failure type: systolic Heart failure chronicity: acute on chronic Qualified Code(s): I50.23 - Acute on chronic systolic (congestive) heart failure Condition: Fair Disposition: AGAINST MEDICAL ADVICE
[2020-02-02 05:23] LABS: ALBUMIN 3.1 g/dL (3.5-5.0); ALKALINE PHOSPHATASE 141 U/L (38-126); ANION GAP 6 (5-19); ASPARTATE AMINO TRANSFERASE 22 U/L (17-59); BILIRUBIN,DIRECT 0.1 mg/dL (0.0-0.4); BILIRUBIN,TOTAL 0.5 mg/dL (0.2-1.3); BLOOD UREA NITROGEN 50 mg/dL (7-20); CARBON DIOXIDE 31 mmol/L (22-30); CHLORIDE 97 mmol/L (98-107); GLUCOSE 107 mg/dL (75-110); TOTAL PROTEIN 6.1 g/dL (6.3-8.2)
[2020-02-02 05:27] LABS: CREATINE KINASE < 20 U/L (55-170)
[2020-02-02 05:28] LABS: POTASSIUM 6.2 mmol/L (3.6-5.0)
[2020-02-02] MEDS ORDERED: NITROGLYCERIN/D5W 50 MG/250 ML RTUINJ IV PRN (05:31)
[2020-02-02 05:34] LABS: CREATINE KINASE MB 1.58 ng/mL (<4.55); TROPONIN I 0.025 ng/mL
--- NOTE | 2020-02-02 05:36 | RADIOLOGY REPORT (SQ) ---
EXAM DESCRIPTION: XR CHEST 1 VIEW COMPLETED DATE/TME: 02/02/2020 04:57 CLINICAL HISTORY: Shortness of breath COMPARISON: 02/06/2019 FINDINGS: Single frontal view of the chest. Cardiomediastinal silhouette: Atherosclerotic calcification of thoracic aorta. Cardiomegaly. Prior median sternotomy. Pulmonary vascular congestion. Lungs: Bilateral interstitial opacities bibasilar airspace opacity and bilateral pleural effusions. No pneumothorax. Bones: Degenerative change of the spine and shoulders. Upper abdomen: No abnormality identified. IMPRESSION: 1. Cardiomegaly with pulmonary edema pattern. 2. Bilateral pleural effusions with likely underlying atelectasis or consolidation.
[2020-02-02] MEDS ORDERED: CALCIUM GLUCONATE 1000 MG/10 ML INJ IV ONE (05:50)
[2020-02-02] MEDS ORDERED: NITROGLYCERIN 2% OINTMENT 1 GM PACKET TP ONE (05:50)
[2020-02-02] MEDS ORDERED: MAG HYDROX/AL HYDROX/SIMETH SUSP 30 ML UDCUP PO PRN (05:56)
[2020-02-02] MEDS ORDERED: ONDANSETRON HCL INJ/PF 4 MG/2 ML SDV IV PRN (05:56)
[2020-02-02 06:00] LABS: HEMATOCRIT 23.2 % (37.9-51.0); MEAN CORPUSCULAR HEMOGLOBIN 30.7 pg (27.0-33.4); MEAN CORPUSCULAR VOLUME 96 fl (80-97); PLATELET COUNT 179 10^3/uL (150-450); RED BLOOD COUNT 2.42 10^6/uL (4.35-5.55); RED CELL DISTRIBUTION WIDTH 18.8 % (11.5-14.0); WHITE BLOOD COUNT 8.9 10^3/uL (4.0-10.5)
[2020-02-02] MEDS ORDERED: HEPARIN SOD (PORCINE) 5,000 UNIT/ML 1 ML VIAL SUBCUT SCH (06:00)
[2020-02-02] MEDS ORDERED: PANTOPRAZOLE SODIUM 40 MG TABLET.DR PO SCH (06:00)
[2020-02-02] MEDS ORDERED: ACETAMINOPHEN 325 MG TABLET PO PRN (06:03)
[2020-02-02] MEDS ORDERED: LEVALBUTEROL HCL NEB 0.63 MG/3 ML AMPUL NEB PRN (06:03)
[2020-02-02] MEDS ORDERED: GUAIFENESIN SYRP 200 MG/10 ML UDC PO PRN (06:03)
[2020-02-02] MEDS ORDERED: LORAZEPAM INJ 2 MG/1 ML VIAL IV PRN (06:03)
[2020-02-02] MEDS ORDERED: HYDRALAZINE HCL INJ/PF 20 MG/1 ML SDV IV PRN (06:03)
[2020-02-02 06:04] LABS: ABSOLUTE LYMPHOCYTES# (MANUAL) 0.3 10^3/uL (0.5-4.7); ABSOLUTE MONOCYTES # (MANUAL) 0.3 10^3/uL (0.1-1.4); BASOPHILS % (MANUAL) 0 % (0-2); EOSINOPHILS % (MANUAL) 0 % (0-6); LYMPHOCYTES % (MANUAL) 3 % (13-45); MONOCYTES % (MANUAL) 3 % (3-13); SEGMENTED NEUTROPHILS % (MAN) 94 % (42-78); TOTAL CELLS COUNTED 100
[2020-02-02] MEDS ORDERED: MORPHINE SULFATE 10 MG/ML INJ IV PRN (06:05)
[2020-02-02 06:08] LABS: ANISOCYTOSIS 2+; OVALOCYTES 1+; PLATELET COMMENT ADEQUATE
[2020-02-02 06:11] LABS: HEMOGLOBIN 7.4 g/dL (13.5-17.0)
[2020-02-02] MEDS ORDERED: NITROGLYCERIN 2% OINTMENT 1 GM PACKET TP SCH (06:15)
[2020-02-02] MEDS ORDERED: SODIUM BICARBONATE 8.4% INJ 50 MEQ/50 ML DISP.SYRIN IV ONE (07:59)
[2020-02-02] MEDS ORDERED: INSULIN REG, HUMAN 100 UNIT/ML 3 ML VIAL (PYX) IV ONE (07:59)
[2020-02-02] MEDS ORDERED: DEXTROSE 50%-WATER 25 GM/50 ML DISP.SYRIN IV ONE (07:59)
[2020-02-02] MEDS ORDERED: LEVALBUTEROL HCL NEB 1.25 MG/3 ML AMPUL NEB SCH (08:00)
[2020-02-02] MEDS ORDERED: IPRATROPIUM BROMIDE 0.02% NEB 0.5 MG/2.5 ML AMPUL NEB SCH (08:00)
[2020-02-02] MEDS ORDERED: BUDESONIDE NEB 0.5 MG/2 ML AMPUL NEB SCH (08:00)
--- NOTE | 2020-02-02 08:12 | EKG REPORT ---
SEVERITY:- ABNORMAL ECG - SINUS RHYTHM NONSPECIFIC INTRAVENTRICULAR CONDUCTION DELAY CONSIDER ANTEROSEPTAL INFARCT BORDERLINE ST DEPRESSION, ANTEROLATERAL LEADS : Confirmed by: Felipe Chow MD 02-Feb-2020 08:11:48
[2020-02-02 09:33] VITALS: BP 114/83
[2020-02-02] MEDS ORDERED: DOCUSATE SODIUM 100 MG CAPSULE PO SCH (10:00)
[2020-02-02] MEDS ORDERED: EPOETIN ALFA-EPBX 30,000 UNIT in SYRINGE, DISPOSABLE, 1 EACH IV PRN (13:08)
== END 2020-02-02 08:40 | disposition left against medical advice (07) ==
LOC: ER 04:28 → EH 06:10
PROVIDERS: ADMIT Emergency Medicine; ATTEND Emergency Medicine
DX: I16.0 Hypertensive urgency (principal); I13.2 Hypertensive heart and chronic kidney disease with heart failure and with stage 5 chronic kidney disease, or end stage renal disease; N18.6 End stage renal disease; I50.23 Acute on chronic systolic (congestive) heart failure; E87.5 Hyperkalemia; T50.3X6A Underdosing of electrolytic, caloric and water-balance agents, initial encounter; J96.01 Acute respiratory failure with hypoxia; F03.90 Unspecified dementia, unspecified severity, without behavioral disturbance, psychotic disturbance, mood disturbance, and anxiety; I25.10 Atherosclerotic heart disease of native coronary artery without angina pectoris; I73.9 Peripheral vascular disease, unspecified; I25.2 Old myocardial infarction; Z99.2 Dependence on renal dialysis; Z86.73 Personal history of transient ischemic attack (TIA), and cerebral infarction without residual deficits; Z95.1 Presence of aortocoronary bypass graft
CPT/HCPCS: 93005; 94640; 99291; 96375; 96365; 96366; 36415; 82553; 82962; 82550; 83605; 85025; 80053; 84484; 83880; 71045; 93010; 94660; A9270 ×2; J0610; J3490 ×5; J1815

== ENCOUNTER 2020-02-02 12:21 | Emergency (ER) | payer MEDICARE, OTHER ==
[2020-02-02 13:29] LABS: INTERNATIONAL RATION (INR) 1.09; MEAN CORPUSCULAR HEMOGLOBIN 30.7 pg (27.0-33.4); MEAN CORPUSCULAR HGB CONC 31.8 g/dL (32.0-36.0); MEAN CORPUSCULAR VOLUME 97 fl (80-97); PLATELET COUNT 174 10^3/uL (150-450); PROTHROMBIN TIME 14.1 SEC (11.4-15.4); RED BLOOD COUNT 2.28 10^6/uL (4.35-5.55); RED CELL DISTRIBUTION WIDTH 19.5 % (11.5-14.0); WHITE BLOOD COUNT 8.1 10^3/uL (4.0-10.5)
[2020-02-02 13:32] LABS: ALKALINE PHOSPHATASE 127 U/L (38-126); ASPARTATE AMINO TRANSFERASE 24 U/L (17-59); BILIRUBIN,DIRECT 0.1 mg/dL (0.0-0.4); BILIRUBIN,TOTAL 0.4 mg/dL (0.2-1.3); BLOOD UREA NITROGEN 59 mg/dL (7-20); CARBON DIOXIDE 34 mmol/L (22-30); CHLORIDE 95 mmol/L (98-107); GLUCOSE 121 mg/dL (75-110)
[2020-02-02 13:35] LABS: ANION GAP 4 (5-19); POTASSIUM 6.1 mmol/L (3.6-5.0)
[2020-02-02] MEDS ORDERED: CALCIUM GLUCONATE 1000 MG/10 ML INJ IV ONE (13:38)
[2020-02-02] MEDS ORDERED: DEXTROSE 50%-WATER 25 GM/50 ML DISP.SYRIN IV ONE (13:39)
[2020-02-02] MEDS ORDERED: SODIUM BICARBONATE 8.4% INJ 50 MEQ/50 ML DISP.SYRIN IV ONE (13:40)
[2020-02-02] MEDS ORDERED: INSULIN REG, HUMAN 100 UNIT/ML 3 ML VIAL (PYX) IV ONE (13:42)
[2020-02-02] MEDS ORDERED: SODIUM POLYSTYRENE SULFONATE 15 GM/60 ML PO ONE (13:43)
[2020-02-02 13:44] LABS: TROPONIN I 0.016 ng/mL
--- NOTE | 2020-02-02 13:51 | RADIOLOGY REPORT (SQ) ---
EXAM DESCRIPTION: CHEST SINGLE VIEW IMAGES COMPLETED DATE/TIME: 02/02/2020 1:36 pm REASON FOR STUDY: sobr COMPARISON: AP view of the chest from 02/02/2020. EXAM PARAMETERS: NUMBER OF VIEWS: One view. TECHNIQUE: An AP view of the chest was obtained. RADIATION DOSE: NA LIMITATIONS: None. FINDINGS: LUNGS AND PLEURA: Unchanged radiographic appearance of the lungs and pleura. MEDIASTINUM AND HILAR STRUCTURES: Stable mediastinal and hilar contours. HEART AND VASCULAR STRUCTURES: Stable enlarged cardiac silhouette. BONES: No acute findings. HARDWARE: Stable postoperative findings including median sternotomy wires, mediastinal clips and TAVR prosthesis. OTHER: No other finding. IMPRESSION: Unchanged radiographic appearance of the chest. TECHNICAL DOCUMENTATION: JOB ID: [id number] 2010 [employer]- All Rights Reserved Reading location - IP/workstation name: [email or web address]
[2020-02-02 14:06] LABS: ABSOLUTE LYMPHOCYTES# (MANUAL) 0.1 10^3/uL (0.5-4.7); ABSOLUTE MONOCYTES # (MANUAL) 0.9 10^3/uL (0.1-1.4); BASOPHILS % (MANUAL) 0 % (0-2); EOSINOPHILS % (MANUAL) 0 % (0-6); LYMPHOCYTES % (MANUAL) 1 % (13-45); MONOCYTES % (MANUAL) 11 % (3-13); SEGMENTED NEUTROPHILS % (MAN) 88 % (42-78); TOTAL CELLS COUNTED 100
--- NOTE | 2020-02-02 14:06 | ER Document Report ---
Entered by JACOBO CORADO SCRIBE 02/02/20 1810 Acting as scribe for:MIRANDA KO MD ED Respiratory Problem - General Chief Complaint: Shortness Of Breath Stated Complaint: SHORTNESS OF BREATH Time Seen by Provider: 02/02/20 12:32 Primary Care Provider: CED MCNEIL MD [Primary Care Provider] - Follow up as needed Notes: This 79 year old male patient presents to the emergency department today with shortness of breath. Patient states he was in the emergency department this morning for shortness of breath and left against medical advice to go to his speech therapy and dialysis appointment. Patient states he missed his last dialysis appointment and had an appointment today, but was sent back to the emergency department without dialysis because he stated he had chest pain the past x3 days, had high K+, and a systolic blood pressure. TRAVEL OUTSIDE OF THE [place] IN LAST 30 DAYS: No - Related Data Allergies/Adverse Reactions: niacin [Niacin] Allergy (Mild, Verified 02/15/19 19:10) [place] Past Medical History - Social History Smoking Status: Never Smoker Cigarette use (# per day): No Chew tobacco use (# tins/day): No Frequency of alcohol use: None Drug Abuse: None Family History: Reviewed & Not Pertinent Patient has suicidal ideation: No Patient has homicidal ideation: No - Past Medical History Cardiac Medical History: Reports: Hx Coronary Artery Disease - PVD, Hx Heart Attack - [place] X3, Hx Hypertension Pulmonary Medical History: Reports: Hx Asthma, Hx COPD Neurological Medical History: Reports: Hx Cerebrovascular Accident Renal/ Medical History: Reports: Hx End Stage Renal Disease - dialysis x 1 wk Past Surgical History: Reports: Other - Abdominal aortic aneurysm repair, CABG with triple bypass. - Immunizations Hx Diphtheria, Pertussis, Tetanus Vaccination: No - THINKS HE HAD PNEU SHOT 2012 Hx Pneumococcal Vaccination: 10/18/12 Review of Systems - Review of Systems Constitutional: No symptoms reported EENT: No symptoms reported Cardiovascular: See HPI, Chest pain Respiratory: See HPI, Short of breath Gastrointestinal: No symptoms reported Genitourinary: No symptoms reported Male Genitourinary: No symptoms reported Musculoskeletal: No symptoms reported Skin: No symptoms reported Hematologic/Lymphatic: No symptoms reported Neurological/Psychological: No symptoms reported -: Yes All other systems reviewed and negative Physical Exam - Vital signs Vitals: Resp 15 02/02/20 12:25 - General General appearance: Alert In distress: Mild - HEENT Head: Normocephalic, Atraumatic Eyes: Normal Pupils: PERRL - Respiratory Respiratory status: Respiratory distress, Tachypnea Chest status: Nontender Breath sounds: Rales - bilaterally. Chest palpation: Normal - Cardiovascular Rhythm: Tachycardia Heart sounds: Normal auscultation Murmur: No - Abdominal Inspection: Other - Feeding tube. Distension: No distension Bowel sounds: Normal Tenderness: Nontender - Extremities General upper extremity: Normal inspection. No: Edema General lower extremity: Normal inspection. No: Edema - Neurological Neuro grossly intact: Yes Cognition: Normal Orientation: AAOx4 - Psychological Associated symptoms: Normal affect, Normal mood - Skin Skin Temperature: Warm Skin Moisture: Dry Skin Color: Normal Course - Re-evaluation Re-evalutation: 02/02/20 14:00 Patient is resting comfortably saturations 100% on 2 L nasal O2 blood pressure is 110/85 and pulse is 103. 02/02/20 14:03 I have had multiple discussions and discussions with the desktop analyst Dr. Rea as well as the admitting hospitalist the plan has ultimately resulted and patient is to return to the dialysis center for immediate dialysis today as an outpatient. - Vital Signs Vital signs: Temp Pulse Resp BP Pulse Ox 98.4 F 29 H 110/85 99 02/02/20 12:31 02/02/20 13:11 02/02/20 13:11 02/02/20 13:11 - Laboratory Result Diagrams: 02/02/20 12:43 02/02/20 12:43 Laboratory results interpreted by me: 02/02/20 12:43 Sodium 133.1 L Potassium 6.1 H* Chloride 95 L Carbon Dioxide 34 H Anion Gap 4 L BUN 59 H Creatinine 5.51 H Est GFR ( Amer) 12 L Est GFR (MDRD) Non-Af 10 L Glucose 121 H Alkaline Phosphatase 127 H Total Protein 6.0 L Albumin 3.0 L Patient is a chronic renal failure patient with potassium elevation today at 6.1 chronic hemoglobin anemia hemoglobin today is 7.0 patient has chronically elevated BUN/creatinine of 59 5.5. - Diagnostic Test Radiology reviewed: Image reviewed, Reports reviewed Radiology results interpreted by me: 02/02/20 14:02 Repeat chest x-ray today from earlier this morning has no change from prior chest x-ray. Patient is cardiomegaly pulmonary edema right-sided pleural effusion fluid in the fissure on the right side 02/02/20 14:02 Twelve-lead EKG done at 1235 today shows sinus tachycardia rate of 106 probable LVH with secondary repolarization changes nonspecific intraventricular conduction delay anterior Q waves possibly possibly due to LVH. Discharge - Discharge Clinical Impression: Chronic kidney disease with end stage renal failure on dialysis, Anemia, Bilateral pleural effusion, CHF (congestive heart failure), ESRD (end stage renal disease), Hyperkalemia Condition: Critical Disposition: [facility] Referrals: CED MCNEIL MD [Primary Care Provider] - Follow up as needed I personally performed the services described in the documentation, reviewed and edited the documentation which was dictated to the scribe in my presence, and it accurately records my words and actions.
[2020-02-02 14:07] LABS: PLATELET GIANT PRESENT
[2020-02-02 14:08] LABS: HYPOCHROMASIA 2+; SPHEROCYTES 1+
[2020-02-02 14:09] LABS: ANISOCYTOSIS 1+; POIKILOCYTOSIS 1+
[2020-02-02 14:11] LABS: PLATELET COMMENT ADEQUATE
[2020-02-02 14:17] VITALS: BP 110/53
--- NOTE | 2020-02-02 18:08 | EKG REPORT ---
SEVERITY:- ABNORMAL ECG - SINUS OR ECTOPIC ATRIAL TACHYCARDIA NONSPECIFIC INTRAVENTRICULAR CONDUCTION DELAY PROBABLE LVH WITH SECONDARY REPOL ABNRM ANTERIOR Q WAVES, POSSIBLY DUE TO LVH : Confirmed by: Felipe Chow MD 02-Feb-2020 18:08:22
== END 2020-02-02 14:30 | disposition home health service (06) ==
LOC: ER 12:21
DX: I13.2 Hypertensive heart and chronic kidney disease with heart failure and with stage 5 chronic kidney disease, or end stage renal disease (principal); N18.6 End stage renal disease; I50.9 Heart failure, unspecified; Z99.2 Dependence on renal dialysis; R07.9 Chest pain, unspecified; R00.0 Tachycardia, unspecified; J44.9 Chronic obstructive pulmonary disease, unspecified; I25.2 Old myocardial infarction; Z86.73 Personal history of transient ischemic attack (TIA), and cerebral infarction without residual deficits; Z95.1 Presence of aortocoronary bypass graft
CPT/HCPCS: 36415; 71045; 83605; 83880; 84484; 85610; 85730; 87070; 93005; 93010; 99284

== ENCOUNTER 2020-02-02 20:42 | Emergency (ER) | payer MEDICARE ==
[2020-02-02] MEDS ORDERED: IPRATROPIUM/ALBUTEROL 0.5-2.5 MG/3 ML AMPUL NEB ONE (21:13)
--- NOTE | 2020-02-02 21:13 | ER Document Report ---
ED Respiratory Problem - General Chief Complaint: Shortness Of Breath Stated Complaint: SHORT OF BREATH Time Seen by Provider: 02/02/20 21:06 Primary Care Provider: CED MCNEIL MD [Primary Care Provider] - Follow up as needed Notes: Patient is a 79-year-old male that comes emergency department for chief complaint of shortness of breath. Patient was seen this morning here, admitted for hyperkalemia and fluid overload, left AGAINST MEDICAL ADVICE, return later, was discharged and went immediately to dialysis, had dialysis and 2 L taken off. Patient states that after he got home he started having shortness of breath which worsened so he came back in. He denies chest pain, fever, cough, abdominal pain, vomiting, or any other complaints except shortness of breath. He has a history of COPD/asthma, is on 3 L nasal cannula at all time, end-stage renal disease, CABG, AAA repair, CVA. TRAVEL OUTSIDE OF THE [place] IN LAST 30 DAYS: No - Related Data Allergies/Adverse Reactions: niacin [Niacin] Allergy (Mild, Verified 02/15/19 19:10) [place] Past Medical History - General Information source: Patient - Social History Smoking Status: Former Smoker Frequency of alcohol use: None Drug Abuse: None Lives with: Family Family History: Reviewed & Not Pertinent - Past Medical History Cardiac Medical History: Reports: Hx Coronary Artery Disease - PVD, Hx Heart Attack - [place] X3, Hx Hypertension Pulmonary Medical History: Reports: Hx Asthma, Hx COPD Denies: Hx Bronchitis, Hx Pneumonia Neurological Medical History: Reports: Hx Cerebrovascular Accident. Denies: Hx Seizures Renal/ Medical History: Reports: Hx End Stage Renal Disease - dialysis x 1 wk. Denies: Hx Peritoneal Dialysis Musculoskeletal Medical History: Denies Hx Arthritis Past Surgical History: Reports: Other - Abdominal aortic aneurysm repair, CABG with triple bypass. - Immunizations Hx Diphtheria, Pertussis, Tetanus Vaccination: No - THINKS HE HAD PNEU SHOT 2012 Hx Pneumococcal Vaccination: 10/18/12 Review of Systems - Review of Systems Constitutional: No symptoms reported EENT: No symptoms reported Cardiovascular: No symptoms reported Respiratory: See HPI Gastrointestinal: No symptoms reported Genitourinary: No symptoms reported Male Genitourinary: No symptoms reported Musculoskeletal: No symptoms reported Skin: No symptoms reported Hematologic/Lymphatic: No symptoms reported Neurological/Psychological: No symptoms reported Physical Exam - Vital signs Vitals: Resp Pulse Ox 27 H 96 02/02/20 20:44 02/02/20 20:44 - Notes Notes: GENERAL: Alert, interacts well. No acute distress. HEAD: Normocephalic, atraumatic. EYES: Pupils equal, round, and reactive to light. Extraocular movements intact. ENT: Oral mucosa moist, tongue midline. Oropharynx unremarkable. Airway patent. NECK: Full range of motion. Supple. Trachea midline. No lymphadenopathy. LUNGS: Decreased breath sounds bilaterally. Borderline tachypnea. Expiratory wheezes. No rales, no labored breathing, speaks in full sentences. HEART: Regular rate and rhythm. No murmur ABDOMEN: Soft, non-tender. Non-distended. EXTREMITIES: Moves all 4 extremities spontaneously. No edema, normal radial and dorsalis pedis pulses bilaterally. No cyanosis. BACK: no cervical, thoracic, lumbar midline tenderness. No saddle anesthesia, normal distal neurovascular exam. NEUROLOGICAL: Alert and oriented x3. Normal speech. Cranial nerves II through XII grossly intact. PSYCH: Normal affect, normal mood. SKIN: Warm, dry, normal turgor. No rashes or lesions noted. Course - Re-evaluation Re-evalutation: On my initial evaluation patient does have some expiratory wheezes, however he is speaking full sentences, does not have labored breathing, he appears to have mild tachypnea at baseline, he is not hypoxic on his baseline oxygen. Patient does not ambulate at baseline and uses a wheelchair. CBC shows anemia but this is unchanged from prior, no leukocytosis. chemistry no nspecific, potassium is less than 5, patient did receive some dialysis earlier today. Chest x-ray does not show overt failure, patient is not hypertensive, patient does not have lower extremity edema, rales on exam, or any signs of distress. On reevaluation patient with no complaints. Troponin has been tested the third time today and is not positive, patient is not having chest pain. No fever, no other concerning findings on exam. I feel that patient is safe to be discharged, he can follow-up closely with dialysis, he is to return if he worsens in any way. Discussed this at length with patient. Patient states appreciation and agreement with plan. Patient with no complaints on my final reevaluation. - Vital Signs Vital signs: Temp Pulse Resp BP Pulse Ox 98.2 F 24 H 146/76 H 100 02/03/20 01:00 02/03/20 00:01 02/03/20 00:01 02/03/20 00:01 - Laboratory Result Diagrams: 02/02/20 21:18 02/02/20 21:18 Laboratory results interpreted by me: 02/02/20 02/02/20 21:18 21:18 RBC 2.47 L Hgb 7.7 L Hct 23.9 L RDW 18.6 H Seg Neuts % (Manual) 85 H Band Neutrophils % 2 L Lymphocytes % (Manual) 6 L Sodium 135.2 L Chloride 97 L Carbon Dioxide 35 H Anion Gap 3 L BUN 36 H D Creatinine 3.81 H Est GFR ( Amer) 19 L Est GFR (MDRD) Non-Af 15 L Discharge - Discharge Clinical Impression: Shortness of breath, Wheezing Condition: Stable Disposition: HOME, SELF-CARE Additional Instructions: Your evaluation now that you have completed dialysis today is reassuring. Continue your home nebulizer, follow-up closely with your drag seiner and dialysis. Come back if you are worse including developing fever, difficulty breathing, chest pain, passing out, vomiting, or any other concerning or worsening symptoms. Referrals: CED MCNEIL MD [Primary Care Provider] - Follow up as needed
[2020-02-02 21:22] LABS: VENOUS BLOOD BASE EXCESS 4.9 mmol/L; VENOUS BLOOD HCO3 31.5 mmol/L (20-32); VENOUS BLOOD PCO2 58.3 mmHg (35-63); VENOUS BLOOD PH 7.35 (7.30-7.42)
[2020-02-02 21:27] LABS: HEMATOCRIT 23.9 % (37.9-51.0); MEAN CORPUSCULAR HEMOGLOBIN 31.2 pg (27.0-33.4); MEAN CORPUSCULAR HGB CONC 32.3 g/dL (32.0-36.0); MEAN CORPUSCULAR VOLUME 97 fl (80-97); PLATELET COUNT 164 10^3/uL (150-450); RED BLOOD COUNT 2.47 10^6/uL (4.35-5.55); RED CELL DISTRIBUTION WIDTH 18.6 % (11.5-14.0); WHITE BLOOD COUNT 8.3 10^3/uL (4.0-10.5)
[2020-02-02 21:32] LABS: HEMOGLOBIN 7.7 g/dL (13.5-17.0)
[2020-02-02 21:42] LABS: CALCIUM 9.7 mg/dL (8.4-10.2); GLUCOSE 103 mg/dL (75-110)
[2020-02-02 21:47] LABS: CARBON DIOXIDE 35 mmol/L (22-30); CHLORIDE 97 mmol/L (98-107)
[2020-02-02 22:00] LABS: ANION GAP 3 (5-19); BLOOD UREA NITROGEN 36 mg/dL (7-20); POTASSIUM 4.9 mmol/L (3.6-5.0)
[2020-02-02 22:02] LABS: ABSOLUTE LYMPHOCYTES# (MANUAL) 0.5 10^3/uL (0.5-4.7); ABSOLUTE MONOCYTES # (MANUAL) 0.6 10^3/uL (0.1-1.4); BAND NEUTROPHILS % (MANUAL) 2 % (3-5); BASOPHILS % (MANUAL) 0 % (0-2); EOSINOPHILS % (MANUAL) 0 % (0-6); LYMPHOCYTES % (MANUAL) 6 % (13-45); MONOCYTES % (MANUAL) 7 % (3-13); SEGMENTED NEUTROPHILS % (MAN) 85 % (42-78); TOTAL CELLS COUNTED 100
[2020-02-02 22:03] LABS: ANISOCYTOSIS 1+; OVALOCYTES SLIGHT; PLATELET COMMENT ADEQUATE; POIKILOCYTOSIS SLIGHT; SCHISTOCYTES SLIGHT; TEAR DROP CELLS SLIGHT
--- NOTE | 2020-02-02 22:30 | RADIOLOGY REPORT (SQ) ---
EXAM DESCRIPTION: XR CHEST 1 VIEW COMPLETED DATE/TME: 02/02/2020 21:12 CLINICAL HISTORY: 79 years Male difficulty breathing COMPARISON: 02/02/2020. FINDINGS: Cardiac enlargement. Atelectasis or infiltrate in the left lung base with left pleural effusion unchanged the earlier exam. Loculated appearing fluid in the right hemithorax with infiltrate in the right lung base. No evidence of central pulmonary vascular congestion. TAVR prosthesis noted. IMPRESSION: Stable appearance of the chest when compared to the previous exam Bilateral basilar infiltrates and pleural effusions
[2020-02-03 01:09] VITALS: BP 146/76
--- NOTE | 2020-02-03 08:46 | EKG REPORT ---
SEVERITY:- ABNORMAL ECG - SINUS TACHYCARDIA LVH WITH SECONDARY REPOLARIZATION ABNORMALITY ANTERIOR Q WAVES, POSSIBLY DUE TO LVH BORDERLINE PROLONGED QT INTERVAL : Confirmed by: Felipe Chow MD 03-Feb-2020 08:46:06
== END 2020-02-03 01:09 | disposition home or self-care (01) ==
LOC: ER 20:42
DX: R06.02 Shortness of breath (principal); R06.2 Wheezing; E87.5 Hyperkalemia; E87.70 Fluid overload, unspecified; J44.9 Chronic obstructive pulmonary disease, unspecified; Z99.81 Dependence on supplemental oxygen; Z87.891 Personal history of nicotine dependence; Z88.8 Allergy status to other drugs, medicaments and biological substances; I25.10 Atherosclerotic heart disease of native coronary artery without angina pectoris; I25.2 Old myocardial infarction; I12.0 Hypertensive chronic kidney disease with stage 5 chronic kidney disease or end stage renal disease; N18.6 End stage renal disease; Z99.2 Dependence on renal dialysis
CPT/HCPCS: 93005; 94640; 99285; 36415; 84484; 82803; 71045; 93010; A9270; J7620